=== PATIENT | male | born 1985 | race Caucasian/White ===

== ENCOUNTER 2022-07-20 07:30 | Outpatient (RCR) | payer MEDICAID, SELFPAY | END 2022-11-07 10:56 | disposition home or self-care (01) | PROVIDERS: Visit Provider Family Medicine | DX: M25.572 Pain in left ankle and joints of left foot (principal); Z51.89 Encounter for other specified aftercare | CPT/HCPCS: 97110; 97162 ==

== ENCOUNTER 2022-09-19 09:45 | Emergency (ER) | payer MEDICAID, SELFPAY ==
[2022-09-19 10:03] VITALS: BP 127/89; PULSE 85; RESP 14; TEMP 37.4; O2SAT 100; BMI 25.8
--- NOTE | 2022-09-19 10:11 | CRLHL7_ITS ---
For Patients: As a result of the Century Cures Act, medical imaging exams and procedure reports are released immediately into your electronic medical record. You may view this report before your referring provider. If you have questions, please contact your health care provider. INDICATION: Cough TECHNIQUE: Chest 1 view COMPARISON: None FINDINGS: Cardiovascular and mediastinum: Heart size and vasculature are normal in caliber and appearance. Lungs and pleural spaces: Lungs are clear. No sign of infiltrate or mass. No sign of pleural effusion. No pneumothorax. Bones and soft tissues: No significant findings. IMPRESSION: No acute findings. Dictated by Morris Aguilar MD @ 09/19/2022 10:59:55 AM (Electronically Signed)
--- NOTE | 2022-09-19 10:13 | ED_ITS ---
HPI - URI/Sore Throat General Date Seen: 09/19/22 Chief Complaint: Ear/Nose/Throat Problem Stated Complaint: Fever, sore throat Time Seen by Provider: 09/19/22 09:47 Source: patient Mode of arrival: ambulatory Limitations: no limitations History of Present Illness HPI Narrative: Patient is a very nice 37-year-old gentleman who has been sick for the past 5 days, he had a fever for the 1st 2 and half to 3 days, of up to 102, body aches, have continued. He also has runny nose, cough associated with this. He did not receive the flu shot this year, is not COVID vaccinated. He called the clinic today, and they directed him to the emergency room to be seen. He notices some discomfort when he swallows, primarily on the right side of his neck, he is eating and drinking otherwise normally, taking some vrob-gxy-gtuverr medications. No history of immunosuppression, does have a history of bipolar disorder is a smoker, occasionally. Denies chest pain, myesha shortness of breath, nausea vomiting, rashes, headache, neck stiffness,. MD elicited complaint: fever and cough Related Data Home Medications Medication Instructions Recorded Confirmed lamotrigine 200 mg tablet 200 mg PO DAILY 09/19/22 09/19/22 lurasidone 40 mg tablet (Latuda) 40 mg PO DAILY 09/19/22 09/19/22 Allergies Allergy/AdvReac Type Severity Reaction Status Date / Time No Known Drug Allergies Allergy Verified 09/19/22 10:08 Review of Systems 2 Status of ROS: Reports: 10 or more systems reviewed and unremarkable except as noted in History and below PFSH PFSH Social History Smoking Status: Light tobacco smoker How often do you have a drink containing alcohol: monthly or less AUDIT-C Alcohol total score: 1 Non-prescribed substance use: marijuana (any form) Non-prescribed substance use details: medical thc Exam Narrative: Exam Narrative: Patient is delightful gentleman seen in room 2, he appears to be in no apparent distress with occasional coughing. His pupils are equal round reactive to light, oropharynx shows some slight redness and almost appears to have had previous tonsillectomy. With scarring. TMs bilaterally are normal, is neck is supple full range of motion is listed with absence of meningismus, no significant lymphadenopathy anterior posterior chains, thyroid is normal palpable not enlarged, moves normally. JVP flat, chest shows good air entry bilaterally with occasional crackles I noted on the left lower lobe. No wheezing noted, heart sounds are normal, skin reveals no petechiae or rashes. Abdomen is soft and scaphoid there is no guarding no tenderness no rashes. Const: Vital Signs, click to edit/add: Vital Signs - 24 hr 09/19/22 10:03 Temperature 99.4 F Pulse Rate [Pulse Oximeter] 85 Respiratory Rate 14 Blood Pressure [Ri ght Upper Arm] 127/89 Pulse Oximetry 100 Oxygen Delivery Me thod Room Air Course Course Hospital Course: Explained to the patient he is positive for COVID, he was sick last week, 10 days for him would be in 48 hours, and then I think he would be okay to go back to work, went over the signs and symptoms of worsening with COVID including the complications, he is in agreeable to this, and will return if he has any further issues. Given the length of his time of sickness, in the no core morbid conditions, I do not think treatment is needed. Vital Signs Vital signs: Initial Vital Signs Temperature 99.4 F 09/19/22 10:03 Temperature Source Temporal Artery Scan 09/19/22 10:03 Pulse Rate 85 09/19/22 10:03 Pulse Rhythm 09/19/22 10:03 Respiratory Rate 14 09/19/22 10:03 Blood Pressure 127/89 09/19/22 10:03 Blood Pressure Mean 101 09/19/22 10:03 Blood Pressure Position Sitting 09/19/22 10:03 Pulse Oximetry 100 09/19/22 10:03 Oxygen Delivery Method 09/19/22 10:03 Vital Signs Temperature 99.4 F 09/19/22 10:03 Pulse Rate 85 09/19/22 10:03 Respiratory Rate 14 09/19/22 10:03 Blood Pressure 127/89 09/19/22 10:03 Pulse Oximetry 100 09/19/22 10:03 Oxygen Delivery Method 09/19/22 10:03 Temperature 99.4 F 09/19/22 10:03 Pulse Rate 85 09/19/22 10:03 Respiratory Rate 14 09/19/22 10:03 Blood Pressure 127/89 09/19/22 10:03 Pulse Oximetry 100 09/19/22 10:03 Oxygen Delivery Method 09/19/22 10:03 MDM - URI/Sore Throat MDM Narrative Medical decision making narrative: Differential diagnosis include a viral upper respiratory illness, histoplasmosis, tuberculosis, pneumonia, COPD exacerbation, emphysema, strep throat illness, bronchitis, asthma, reactive airway disease, chronic cough, medi cation side effects, allergic rhinitis with postnasal drip, foreign body aspiration, aspiration pneumonia, bronchiolitis, and gastroesophageal reflux disease as well as multiple other considerations. Differential Diagnosis Differential diagnosis: Likely upper respiratory infection Medical Records Attestation: I reviewed the patient's medical records. Lab Data Attestation: I reviewed the patient's lab results. Lab results narrative: Positive for COVID Labs: Lab Results 09/19/22 Range/Units 10:15 SARS-CoV-2 (PCR) POSITIVE SARS-CoV-2 A (Negative) Influenza Type A (PCR) Negative PCR FLU A (Negative) Influenza Type B (PCR) Negative PCR FLU B (Negative) RSV (PCR) Negative PCR RSV (Negative) Imaging Data Chest x-ray: My impression: Chest x-ray negative Radiologist's impression: Chest x-ray negative Discharge Plan Discharge Clinical Impression: COVID-19 Patient Disposition: Home, Self-Care Condition: Stable Instructions: COVID-19 (Coronavirus Disease 2019) (ED), COVID-19 and Chronic Health Conditions (ED), Face Coverings (Masks) and COVID-19 (ED) Additional Instructions: Home rest off work for the next 2 days, able to go back work in 48 hours. He was off work yesterday, and this should also account for this. Return here if i ncreasing symptoms such as chest pain passing out leg swelling. Problems breathing. Were face mask, explained other people, that your positive for COVID. Prescriptions: No Action lamotrigine 200 mg tablet 200 mg PO DAILY Latuda 40 mg tablet 40 mg PO DAILY Follow Up/Referrals: Provider,Not a Local [Primary Care Provider] - Stand Alone Forms: [employer] Info Instructions
[2022-09-19] MEDS: ACETAMINOPHEN 500 MG TABLET 1000 MG PO (10:20)
--- OUTSIDE RECORDS SUMMARY | 2022-09-19 10:22 | XMS_ITS | Clinical Summary ---
:1985 Author Organization [facility] [place] [address] Care Team Providers Name Role Phone Ruth Ann Cadena Primary Care Provider [phone] Allergies No known active allergies Medications Medication Sig Dispensed Refills Start Date End Date Status lamoTRIgine Take 1 Tablet 30 Tablet 2 07/11/2022 Act rachel (LAMICTAL) 200 mg (200 mg) by tabletIndications: mouth once Bipolar 1 disorder daily. (HC) Ventolin HFA 90 INHALE 2 PUFFS 18 g 0 08/28/2022 Active mcg/actuation BY MOUTH EVERY inhalerIndications 4 HOURS : Mild NEEDED FOR intermittent SHORTNESS OF asthma with acute BREATH OR exacerbation WHEEZING Latuda 40 mg TAKE 1 30 Tablet 1 08/28/2022 Active tabletIndications: TABLET(40 MG) Bipolar 1 disorder BY MOUTH EVERY (HC) DAY WITH A MEAL albuterol HFA Inhale 2 Puffs 1 Each 5 12/28/2021 08/28/2022 Discontinued (Ventolin HFA) 90 by mouth every mcg/actuation 4 hours if inhalerIndications needed for : Mild Shortness of intermittent Breath 1st asthma with acute choice or exacerbation Wheezing 1st choice. lurasidone Take 1 Tablet 30 Tablet 2 07/11/2022 08/28/2022 Dis continued (LATUDA) 40 mg (40 mg) by tabletIndications: mouth once Bipolar 1 disorder daily with a (HC) meal. 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 11/03/2017 Alcohol use disorder, severe, in sustained remission 1 Encounters Date Type Specialty Care Team Description 09/19/2022 Travel 09/19/2022 Nurse Triage Pcp, No Throat Pain/pro blem 08/26/2022 Refill Malecharly, Any Refill Requ est (Latuda) ODETTE Thomas 08/25/2022 Refill Ahlskog, Ruth Ann Refill Requ est (Ventolin [place], PA Hfa) 07/12/2022 Telephone Thaddeus Salmon, ANTHONY Sup ply (Custom DPM orthotics) 07/11/2022 Office Visit Any Kyle Follow Up ( ); ODETTE Thomas Medication Riya gement 07/11/2022 Medical Messaging Brenden Scales, Pr junito SWAN 07/11/2022 Travel 06/27/2022 Office Visit Thaddeus Salmon, Consult (Left ankle pain, DPM orthotics) 06/27/2022 Travel 06/21/2022 Refill Malecharly Any Refill Requ est ODETTE Thomas (Lamotrigine) from Last 3 Months Immunizations Name Administration Dates Next Due Td (Age >=7 Years) 07/31/1997 Tdap 04/26/2012, 12/29/2008 Family History Medical History Relation Name Comments Asthma Brother 1 Depression Brother 1 Depression Brother 2 Depression Brother 3 Seizures Father Depression Mother Diabetes Mother Alcoholism Other dad's side Depression Sister Mental illness Son 1 Other Son 2 Pablo nut and shrimp a llergies Relation Name Status Comments Brother 1 Alive Brother 2 Alive Brother 3 Alive Father (Age 26) Mother Alive Other Sister Alive Son 1 Alive Son 2 Pablo Alive Social History Tobacco Use Types Packs/Day Years Used Date Former Smoker Cigarettes 0.3 Quit: 07/24/20 21 Smokeless Tobacco: Never Used Tobacco Cessation: Counseling Given: Yes Alcohol Use Standard Drinks/Week Comments Not Currently 0 (1 standard drink = 0.6 oz pure No ETO H in 2 months, noted alcohol) 12/13/2021 Alcohol Habits Answer Date Recorded How often do you have a drink Not asked containing alcohol? How many drinks containing alcohol do Not asked you have on a typical day when you are drinking? How often do you have six or more Not asked drinks on one occasion? 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 Obstetrics History Last Filed Vital Signs Vital Sign Reading Time Taken Comments Blood Pressure 119/78 07/11/2022 7:35 AM CDT Pulse 73 07/11/2022 7:35 AM CDT Temperature 36.5 ??C (97.7 ??F) 05/31/2022 8:09 AM CDT Respiratory Rate 16 11/03/2017 10:00 AM WRAPAROUND FACILITATOR Oxygen Saturation 97% 06/27/2022 3:19 PM CDT Inhaled Oxygen Concentration - - Weight 81.3 kg (179 lb 4.8 oz) 07/11/2022 7:35 AM CDT Height 172.9 cm (5' 8.07) 09/23/2021 8:39 AM WRAPAROUND FACILITATOR Body Mass Index 27.21 09/23/2021 8:39 AM WRAPAROUND FACILITATOR Plan of Treatment Upcoming Encounters Date Type Specialty Care Team Description 09/20/2022 Office Visit [facility]ke[facility] [address] [facility] [place] [address] ([place] dem[place]co) 10/18/2022 Office Visit Brenden Scales MD [address] [place] [address] (Praveen pal) Health Maintenance Due Date Last Done Comments COVID-19 vaccine series (#1) 1984 Pneumococcal series for age 19-64 1990 (1 - PCV) HIV for age 15-65 1999 Hepatitis C screening for age 0503/13/2002 18-79 Tetanus booster 04/26/2022 04/26/2012, 12/29/2008, 07/31/1997 Influenza for age 9-49 07/06/2022 BMI (ht and wt on same day) for 09/23/2022 09/23/2021 age 18+ Depression screening for age 12+ 07/12/2023 07/12/2022, 04/2022, 06/01/2022, Additional history exists Lipids for age 35-44 09/23/2026 09/23/2021 Tdap Completed 04/26/2012, 12/29/2008 Results Not on filefrom Last 3 Months Insurance Payer Benefit Plan / Subscriber ID Effective Dates Phone Addre ss Type Group MEDICA MEDICA CHOICE [id number] 2016-Present [address] [address] [place] [address] [employer] [place] [id number] 2020-Present [address] [place] [address] Gino Hernandez Personal/Family Self 1985 [address] (Home) [address] [place] [address] [place] [facility] [employer] Employer [address] [place] (Home) [employer] [phone] (Work) Advance Directives Latest Code Status on File Code Status Date Activated Date Inactivated Comments Full Code 11/02/2017 10:19 PM 11/03/2017 1:41 PM Care Teams Educational Therapist Relationship Specialty Start Date End Date Ruth Ann Cadena PA PCP - General Physician Interpreter 05/03/[address] [place] [address]
[2022-09-19 11:06] LABS: PCR FLU A Negative PCR FLU A (Negative); PCR FLU B Negative PCR FLU B (Negative); PCR RSV Negative PCR RSV (Negative)
[2022-09-19 11:16] LABS: SARS PCR* POSITIVE SARS-CoV-2 (Negative)
[2022-09-19 11:47] VITALS: BP 127/89; PULSE 85; RESP 14; TEMP 37.4
== END 2022-09-19 11:48 | disposition home or self-care (01) ==
PROVIDERS: Emergency Provider Family Medicine
DX: U07.1 COVID-19 (principal); M79.10 Myalgia, unspecified site
CPT/HCPCS: 71045; 87502; 87634; 87635; 99283; A9270

== ENCOUNTER 2022-09-19 14:55 | Emergency (ER) | payer MEDICAID, SELFPAY ==
[2022-09-19 15:32] VITALS: BP 122/84; PULSE 98; RESP 16; TEMP 37.4; O2SAT 97; BMI 25.8
--- NOTE | 2022-09-19 15:47 | ED_ITS ---
HPI - General Adult General Time Seen by Provider: 15:48 Date Seen: 09/19/22 Chief complaint: Chest Pain Stated complaint: Covid+, chest pain Time Seen by Provider: 09/19/22 15:47 Source: patient, RN notes reviewed and old records reviewed Mode of arrival: ambulatory Limitations: no limitations History of Present Illness HPI narrative: 37-year-old male who comes in today with chest pain. Patient was seen here earlier in the day and was diagnosed with COVID infection. Comes back left- sided chest pain which he says feels like a cramp as well as feeling like his heart is beating fast. No increased shortness of breath. Pain is worse with movement, not worse with shortness of breath. Has not taken any medications since leaving the department. Related Data Home Medications Medication Instructions Recorded Confirmed lamotrigine 200 mg tablet 200 mg PO DAILY 09/19/22 09/19/22 lurasidone 40 mg tablet (Latuda) 40 mg PO DAILY 09/19/22 09/19/22 Allergies Allergy/AdvReac Type Severity Reaction Status Date / Time No Known Drug Allergies Allergy Verified 09/19/22 15:39 Review of Systems Status of ROS: Reports: 10 or more systems reviewed and unremarkable except as noted in History and below PFSH PFS Social History Smoking Status: Light tobacco smoker Do you use any of these nicotine containing products: None How often do you have a drink containing alcohol: monthly or less AUDIT-C Alcohol total score: 1 Non-prescribed substance use: marijuana (any form) Non-prescribed substance use details: medical thc service: No Exam Narrative: Exam Narrative: General: Well-developed and well-nourished, no acute distress Head: Atraumatic and normocephalic Eyes: Pupils are equal reactive, extraocular motions intact, conjunctiva clear ENT: External nose and ears are normal, posterior pharynx without erythema or exudate Neck: No midline cervical tenderness, full spontaneous range of motion the neck, trachea midline, no adenopathy Heart: Regular rate and rhythm no murmurs or thrills Lungs: Clear to auscultation bilaterally without wheezes or crackles. Chest wall tenderness in the 5th intercostal space on the left which reproduces symptoms Abdomen: Soft, nontender, nondistended with active bowel sounds Musculoskeletal: No tenderness, deformity, or edema Neurologic: Awake, alert, and oriented x3, no gross focal neurologic deficits, cranial nerves intact as tested Psych: Mood and affect are appropriate Skin: No rashes Const: Vital Signs, click to edit/add: Vital Signs - 24 hr 09/19/22 15:32 Temperature 99.3 F Pulse Rate [Right Pulse Oximeter] 98 Respiratory Rate 16 Blood Pressure [Ri ght Upper Arm] 122/84 Pulse Oximetry 97 Oxygen Delivery Me thod Room Air Course Course Hospital Course: Patient seen examined, prior records reviewed. Patient diagnosed with COVID earlier today, now comes back left-sided chest pain. No tachycardia or hypoxia. D-dimer is ordered although clinically pulmonary embolism is low likelihood but he does not fit low risk criteria because of COVID diagnosis. Pain is reproducible with palpation. EKG is reassuring, D-dimer is ordered. Toradol IM is given and plan to discharge. Reevaluation(s) Reevaluation #1: D-dimer is negative, patient is stable for discharge. Time: 17:04 Vital Signs Vital signs: Initial Vital Signs Temperature 99.3 F 09/19/22 15:32 Temperature Source Temporal Artery Scan 09/19/22 15:32 Pulse Rate 98 09/19/22 15:32 Respiratory Rate 16 09/19/22 15:32 Blood Pressure 122/84 09/19/22 15:32 Blood Pressure Mean 96 09/19/22 15:32 Blood Pressure Position Sitting 09/19/22 15:32 Pulse Oximetry 97 09/19/22 15:32 Oxygen Delivery Method 09/19/22 15:32 Vital Signs Temperature 99.3 F 09/19/22 15:32 Pulse Rate 98 09/19/22 15:32 Respiratory Rate 16 09/19/22 15:32 Blood Pressure 122/84 09/19/22 15:32 Pulse Oximetry 97 09/19/22 15:32 Oxygen Delivery Method 09/19/22 15:32 Temperature 99.3 F 09/19/22 15:32 Pulse Rate 98 09/19/22 15:32 Respiratory Rate 16 09/19/22 15:32 Blood Pressure 122/84 09/19/22 15:32 Pulse Oximetry 97 09/19/22 15:32 Oxygen Delivery Method 09/19/22 15:32 Medical Decision Making Medical Records Medical records reviewed: Yes I reviewed the patient's medical records Lab Data Lab results reviewed: Yes I reviewed the patient's lab results Labs: Lab Results 09/19/22 Range/Units 16:02 D-Dimer Quant (PE/DVT) 0.33 (0.00-0.50) ug/ml ECG Data Attestation: I personally reviewed and interpreted this ECG as follows: Prior ECG tracings: not available for review Interpretation: Performed at 3:56 p.m. demonstrates sinus rhythm rate 99, incomplete right bundle-branch block, no acute ST elevations or depressions, normal intervals, normal axis, QTC 464, SD 150. No prior for comparison. Discharge Plan Discharge Clinical Impression: COVID-19, Acute chest wall pain Patient Disposition: Home, Self-Care Condition: Stable Instructions: Chest Wall Pain (ED) Additional Instructions: Take Tylenol and ibuprofen for fever, body aches, chest pain Activity Level: No Restrictions Discharge Diet: Regular Prescriptions: No Action lamotrigine 200 mg tablet 200 mg PO DAILY Latuda 40 mg tablet 40 mg PO DAILY Follow Up/Referrals: Provider,Not a Local [Primary Care Provider] - Stand Alone Forms: [employer] Info Instructions
--- OUTSIDE RECORDS SUMMARY | 2022-09-19 16:13 | XMS_ITS | Clinical Summary ---
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 Obstetrics History Last Filed Vital Signs Vital Sign Reading Time Taken Comments Blood Pressure 119/78 07/11/2022 7:35 AM CDT Pulse 73 07/11/2022 7:35 AM CDT Temperature 36.5 ??C (97.7 ??F) 05/31/2022 8:09 AM CDT Respiratory Rate 16 11/03/2017 10:00 AM PICK UP AND DELIVERY DRIVER Oxygen Saturation 97% 06/27/2022 3:19 PM CDT Inhaled Oxygen Concentration - - Weight 81.3 kg (179 lb 4.8 oz) 07/11/2022 7:35 AM CDT Height 172.9 cm (5' 8.07) 09/23/2021 8:39 AM PICK UP AND DELIVERY DRIVER Body Mass Index 27.21 09/23/2021 8:39 AM PICK UP AND DELIVERY DRIVER Plan of Treatment Upcoming Encounters Date Type Specialty Care Team Description 09/20/2022 Office Visit [facility] [address] [facility] [place] [address] (Wo demarco) 10/18/2022 Office Visit Brenden Scales MD [address] [place] [address] (Praveen pal) Health Maintenance Due [...] Addre ss Type Group MEDICA MEDICA CHOICE [id number] 2016-Present [address] [address] [place] [address] [employer] [place] [id number] 2020-Present [address] [place] [address] Gino Hernandez Personal/Family Self 1985 [address] (Home) [address] [place] [address] [place] [employer] [facility] [employer] Employer [address] [place] (Home) [employer] [phone] (Work) Advance Directives Latest Code Status on File Code Status Date Activated Date Inactivated Comments Full Code 11/02/2017 10:19 PM 11/03/2017 1:41 PM Care Teams Seamer Panty Hose Relationship Specialty Start Date End Date Ruth Ann Cadena PA PCP - General Physician Item Repair Manager 05/03/[address] [place] [address]
[2022-09-19] MEDS: KETOROLAC 30 MG/ML inj IM (16:31)
[2022-09-19 16:33] LABS: D Dimer Quantitative* 0.33 ug/ml (0.00-0.50)
[2022-09-19 17:12] VITALS: BP 122/84; PULSE 98; RESP 16; TEMP 37.4
[2022-09-19 17:14] VITALS: BP 133/72; PULSE 72; RESP 14; O2SAT 99
== END 2022-09-19 17:12 | disposition home or self-care (01) ==
PROVIDERS: Emergency Provider Family Medicine
DX: R07.89 Other chest pain (principal); U07.1 COVID-19
CPT/HCPCS: 36415; 85379; 96372; 99283; 99284; J1885

== ENCOUNTER 2022-09-21 12:24 | Emergency (ER) | payer MEDICAID, SELFPAY ==
[2022-09-21 13:10] VITALS: BP 113/80; PULSE 79; RESP 16; TEMP 36.8; O2SAT 98; BMI 25.8
--- NOTE | 2022-09-21 13:16 | ED.GENADULT ---
HPI - General Adult General Time Seen by Provider: 13:17 Date Seen: 09/21/22 Chief complaint: Chest Pain Stated complaint: Chest pain left side Time Seen by Provider: 09/21/22 13:08 Source: patient, RN notes reviewed and old records reviewed Mode of arrival: ambulatory Limitations: no limitations History of Present Illness HPI narrative: Patient is a 37-year-old male coming in with left-sided chest pain, more along the left lower side of his chest. It is deeper than what he can touch. He was diagnosed with COVID this past Sunday, came back in shortly after with left chest pain. He was evaluated, had a normal D-dimer and was given Toradol. He states the pain is still there. He has been using Tylenol and ibuprofen it is not really changing things. He has initially been sick since Sunday with fevers and chills, they went through to Sunday. He has got some mild cough, occasionally productive. No GI symptoms with this. He is not short of breath. The pain hurts worse with deep breathing. No palpitations. He believes 1 of his coworkers came to work sick with COVID and brought it to him. Related Data Home Medications Medication Instructions Recorded Confirmed lamotrigine 200 mg tablet 200 mg PO DAILY 09/19/22 09/21/22 lurasidone 40 mg tablet (Latuda) 40 mg PO DAILY 09/19/22 09/21/22 Previous Rx's Medication Instructions Recorded ketorolac 10 mg tablet 10 mg PO Q6H PRN pain 5 days #20 09/21/22 tabs Allergies Allergy/AdvReac Type Severity Reaction Status Date / Time No Known Drug Allergies Allergy Verified 09/21/22 13:10 Review of Systems Status of ROS: Reports: 10 or more systems reviewed and unremarkable except as noted in History and below PFSH PFS Social History Smoking Status: Light tobacco smoker Do you use any of these nicotine containing products: None How often do you have a drink containing alcohol: monthly or less AUDIT-C Alcohol total score: 1 Non-prescribed substance use: marijuana (any form) Non-prescribed substance use details: medical thc service: No Exam Const: Vital Signs, click to edit/add: Vital Signs - 24 hr 09/21/22 13:10 09/21/22 13:25 Temperature 98.3 F Pulse Rate [Pulse Oximeter] 79 Respiratory Rate 16 Blood Pressure [Ri ght Upper Arm] 113/80 Pulse Oximetry 98 100 Oxygen Delivery Me thod Room Air Documenting provider has reviewed patient's vital signs: yes Common normals: no apparent distress, average body habitus, oriented x3, no limitations, healthy appearing, alert and well nourished General appearance: cooperative, comfortable, well kempt and well developed HENMT: Common normals: normocephalic, head/scalp atraumatic, hearing grossly normal bilaterally and external ears normal Head and scalp: normocephalic and atraumatic External ear: external ears normal Eye: Common normals: PERRL, EOMs intact bilaterally, conjunctivae normal and no scleral icterus Conjunctiva: conjunctiva(e) normal Pupil: PERRL Neck & C-Spine: Common normals: full ROM, no lymphadenopathy, supple, no meningeal signs, no JVD and thyroid normal Thyroid: thyroid normal Lymph: Lymphatic: no lymphadenopathy noted Chest: Common normals: inspection of chest normal and palpation of chest normal Resp: Common normals: normal respiratory effort, no retractions, no use of accessory muscles and clear to auscultation bilaterally Auscultation: clear to auscultation bilaterally Cardio: Common normals: no JVD, regular rate, regular rhythm, S1 normal heart sound, S2 normal heart sound, no gallops, no clicks and no murmurs Rate: regular rate Rhythm: regular rhythm Heart sounds: S1 normal and S2 normal GI: Common normals: Normal to inspection, nondistended, normoactive bowel sounds present, soft to palpation, non-tender, no hepatosplenomegaly and no masses Palpation: soft and no hepatosplenomegaly Extremity: Other: No calf tenderness, no lower extremity edema. Ambulatory into the ED of his own accord with normal gait. Neuro: Common normals: oriented x3 Sensorium/orientation: alert Meningeal signs: no meningeal signs Speech: speech normal Psych: Appearance: well kempt Course Course Hospital Course: Will proceed with portable chest x-ray to rule out pneumonia, pneumothorax. He will be on pulse oximetry which will see if he develops any tachycardia or hypoxia. Will proceed with labs. Did review with him will be getting a D-dimer. If his D-dimer does come back elevated will recommend chest CT PE protocol. We will try a shot of Toradol with 30 mg IM. I had initially ordered everything IV but patient did decide he wanted it IM and a blood draw without an IV being started. Reevaluation(s) Reevaluation #1: Reviewed with patient that there is no evidence of any complication from his COVID. He is not hypoxic, chest x-ray is normal. There is no cardiac complications with a normal troponin, normal EKG, no arrhythmia on cardiac monitoring. His labs look reassuring. D-dimer is normal. I would not recommend proceeding with chest CT PE protocol given that he has got no tachycardia, no hypoxia, no lab changes. I think in this situation the risk of radiation really outweighs any benefit we might see on the CT. He is not really feeling that the Toradol at this point as helped a lot. I did review with him that he may just have some pain that is pleuritic through COVID. I would not recommend narcotics, I think that is fraught with its own set of complications. He does not look that distressed due to the pain. I would recommend a trial of Toradol with Tylenol and then transitioning back to Tylenol and ibuprofen. Hopefully within the next week he will be improving. Time: 15:21 Vital Signs Vital signs: Initial Vital Signs Temperature 98.3 F 09/21/22 13:10 Temperature Source Temporal Artery Scan 09/21/22 13:10 Pulse Rate 79 09/21/22 13:10 Pulse Rhythm 09/21/22 13:10 Pulse Strength 3+ Normal 09/21/22 13:10 Respiratory Rate 16 09/21/22 13:10 Blood Pressure 113/80 09/21/22 13:10 Blood Pressure Mean 91 09/21/22 13:10 Blood Pressure Position Supine 09/21/22 13:10 Pulse Oximetry 98 09/21/22 13:10 Oxygen Delivery Method 09/21/22 13:10 Vital Signs Temperature 98.3 F 09/21/22 13:10 Pulse Rate 79 09/21/22 13:10 Respiratory Rate 16 09/21/22 13:10 Blood Pressure 113/80 09/21/22 13:10 Pulse Oximetry 98 09/21/22 13:10 Oxygen Delivery Method 09/21/22 13:10 Temperature 98.3 F 09/21/22 13:10 Pulse Rate 79 09/21/22 13:10 Respiratory Rate 16 09/21/22 13:10 Blood Pressure 113/80 09/21/22 13:10 Pulse Oximetry 100 09/21/22 13:25 Oxygen Delivery Method 09/21/22 13:10 Medical Decision Making Lab Data Lab results reviewed: Yes I reviewed the patient's lab results Labs: Lab Results 09/21/22 09/21/22 09/21/22 Range/Units 14:25 14:25 14:25 WBC 6.00 (4.50-11.00) K/uL RBC 5.02 (4.30-5.90) m/uL Hgb 14.8 (13.5-17.5) gm/dL Hct 45.3 (37.0-53.0) % MCV 90 (80-100) fL MCH 30 (26-34) pg MCHC 33 (32-36) gm/dL RDW Coeff of Horace 11.4 L (11.5-15.5) % Plt Count 224 (140-440) K/uL Neut % (Auto) 61.6 (42.0-72.0) % Lymph % (Auto) 26.8 (20-44) % Florence % (Auto) 7.5 (0.0-11.0) % Eos % (Auto) 3.7 (0.0-7.0) % Baso % (Auto) 0.2 (0.0-3.0) % Neut # (Auto) 3.70 (1.7-7.0) K/uL Lymph # (Auto) 1.61 (0.90-2.90) K/uL Florence # (Auto) 0.50 (0.00-0.90) K/UL Eos # (Auto) 0.22 (0.00-0.50) K/uL Baso # (Auto) 0.01 (0.00-0.30) K/uL Abs Immat Gran (auto) 0.01 (0.00-0.30) K/uL Imm/Tot Granulo (auto) 0.2 % D-Dimer Quant (PE/DVT) < 0.27 (0.00-0.50) ug/ml Sodium 140 (135-149) mmol/L Potassium 5.0 (3.6-5.1) mmol/L Chloride 103 (96-114) mmol/L Carbon Dioxide 30 (20-32) mmol/L BUN 15 (5-24) mg/dL Creatinine 0.8 (0.5-1.5) mg/dL Estimated Creat Clear 125.20 Estimated GFR 116 ml/min Glucose 97 (60-115) mg/dL Calcium 9.1 (8.4-10.6) mg/dL Total Bilirubin 0.4 (0.1-1.5) mg/dL AST 24 (12-35) U/L ALT 27 (4-50) U/L Alkaline Phosphatase 71 (40-150) U/L C-Reactive Protein 0.9 (0.5-1.0) mg/dL Total Protein 7.4 (6.0-8.3) g/dL Albumin 4.5 (3.3-5.0) g/dL POC Troponin I (0.01-0.04) ng/ml 09/21/22 Range/Units 14:25 WBC (4.50-11.00) K/uL RBC (4.30-5.90) m/uL Hgb (13.5-17.5) gm/dL Hct (37.0-53.0) % MCV (80-100) fL MCH (26-34) pg MCHC (32-36) gm/dL RDW Coeff of Horace (11.5-15.5) % Plt Count (140-440) K/uL Neut % (Auto) (42.0-72.0) % Lymph % (Auto) (20-44) % Florence % (Auto) (0.0-11.0) % Eos % (Auto) (0.0-7.0) % Baso % (Auto) (0.0-3.0) % Neut # (Auto) (1.7-7.0) K/uL Lymph # (Auto) (0.90-2.90) K/uL Florence # (Auto) (0.00-0.90) K/UL Eos # (Auto) (0.00-0.50) K/uL Baso # (Auto) (0.00-0.30) K/uL Abs Immat Gran (auto) (0.00-0.30) K/uL Imm/Tot Granulo (auto) % D-Dimer Quant (PE/DVT) (0.00-0.50) ug/ml Sodium (135-149) mmol/L Potassium (3.6-5.1) mmol/L Chloride (96-114) mmol/L Carbon Dioxide (20-32) mmol/L BUN (5-24) mg/dL Creatinine (0.5-1.5) mg/dL Estimated Creat Clear Estimated GFR ml/min Glucose (60-115) mg/dL Calcium (8.4-10.6) mg/dL Total Bilirubin (0.1-1.5) mg/dL AST (12-35) U/L ALT (4-50) U/L Alkaline Phosphatase (40-150) U/L C-Reactive Protein (0.5-1.0) mg/dL Total Protein (6.0-8.3) g/dL Albumin (3.3-5.0) g/dL POC Troponin I 0.00 L (0.01-0.04) ng/ml Imaging Data Chest x-ray: Attestation: I have reviewed the pertinent imaging results. My impression: No acute cardiopulmonary change of my preliminary read. Radiologist's impression: Patient: TRAVON HERRERA Facility:?[facility] Patient ID:?[id number] Site Patient ID:?[id number]. Site :?[id number] Study:?XRay Chest -09/21/2022 1:51:18 PM Ordering Physician:Suha Wagoner Final Report: INDICATION: COVID-19, cough TECHNIQUE: Chest radiograph 2 views COMPARISON: None FINDINGS: Mediastinum: The mediastinum is normal in appearance. The heart silhouette is normal in size and morphology. Lung: Both lungs are unremarkable in appearance. No sign of pleural effusion seen. No pneumothorax is identified. Bone and Soft tissue: Unremarkable for age. IMPRESSION: 1. No acute cardiopulmonary disease is seen. Dictated by: Armin Marti MD @ 09/21/2022 14:26:37 (Electronic Signature) ECG Data Attestation: I personally reviewed and interpreted this ECG as follows: (Normal sinus rhythm, 84 beats per minute. Incomplete right bundle branch block. QT corrected 434 milliseconds. No arrhythmia, no ischemia seen on this.) Critical Care Time Critical Care Time Critical Care Time: No Discharge Plan Discharge Clinical Impression: COVID-19, Pleuritic chest pain Condition: Stable Instructions: Pleurisy (ED), COVID-19 (Coronavirus Disease 2019) (ED) Additional Instructions: Can try the oral Toradol as prescribed. With this, you can take 1000 mg of Tylenol 3 times a day. Once you are done with the Toradol, can resume ibuprofen or Naprosyn and Tylenol alternating. Hopefully you will start to improve over the next few days to week. If at any point you are developing worsening respiratory symptoms with difficulty breathing, increasing cough or productive cough, worsening fever, further concerns, do recommend re-evaluation. Activity Level: Activity as Tolerated Prescriptions: New ketorolac 10 mg tablet 10 mg PO Q6H PRN (Reason: pain) 5 Days Qty: 20 0RF No Action lamotrigine 200 mg tablet 200 mg PO DAILY Latuda 40 mg tablet 40 mg PO DAILY Follow Up/Referrals: Provider,Not a Local [Primary Care Provider] - Stand Alone Forms: [employer] Info Instructions
[2022-09-21 13:25] VITALS: O2SAT 100
--- NOTE | 2022-09-21 13:25 | CRLHL7_ITS ---
For Patients: As a result of the Cures Act, medical imaging exams and procedure reports are released immediately into your electronic medical record. You may view this report before your referring provider. If you have questions, please contact your health care provider. INDICATION: COVID-19, cough TECHNIQUE: Chest radiograph 2 views COMPARISON: None FINDINGS: Mediastinum: The mediastinum is normal in appearance. The heart silhouette is normal in size and morphology. Lung: Both lungs are unremarkable in appearance. No sign of pleural effusion seen. No pneumothorax is identified. Bone and Soft tissue: Unremarkable for age. IMPRESSION: 1. No acute cardiopulmonary disease is seen. Dictated by: Armin Marti MD @ 09/21/2022 14:26:37 (Electronically Signed)
--- OUTSIDE RECORDS SUMMARY | 2022-09-21 13:28 | XMS_ITS | Clinical Summary ---
:1985 Author Organization [facility] [place] [address] Care Team Providers Name Role Phone Unavailable Primary Care Provider Unavailable Allergies No known active allergies Medications Medication [...] Encounters Date Type Specialty Care Team Description 09/21/2022 Telephone Ruth Ann Cadena PA 09/21/2022 Travel 09/21/2022 Nurse Triage Ruth Ann Cadena Concerns BIANKA Mccauley 09/19/2022 Travel 09/19/2022 Nurse Triage Pcp, No Throat Pain/pro blem 08/26/2022 Refill Malecha, Any Refill Requ est (Latuda) ODETTE Thomas 08/25/2022 Refill Ruth Ann Cadena Refill Requ est (Ventolin BIANKA Mccauley Hfa) 07/12/2022 Telephone Thaddeus Salmon, ANTHONY Sup ply (Custom DPM orthotics) 07/11/2022 Office Visit Any Kyle Follow Up ( ); ODETTE Thomas Medication Riay gement 07/11/2022 Medical Messaging Brenden Scales Me dication MD 07/11/2022 Travel 06/27/2022 Office Visit Thaddeus Salmon, Consult (Left ankle pain, DPM orthotics) 06/27/2022 Travel 06/21/2022 Refill Malecha, Any Refill Requ est ODETTE Thomas (Lamotrigine) [...] days, have you been in contact with No / Unsu re 09/21/2022 8:59 AM 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 Obstetrics History Last Filed Vital Signs Vital Sign Reading Time Taken Comments Blood Pressure 119/78 07/11/2022 7:35 AM CDT Pulse 73 07/11/2022 7:35 AM CDT Temperature 36.5 ??C (97.7 ??F) 05/31/2022 8:09 AM CDT Respiratory Rate 16 11/03/2017 10:00 AM DUST SAMPLER Oxygen Saturation 97% 06/27/2022 3:19 PM CDT Inhaled Oxygen Concentration - - Weight 81.3 kg (179 lb 4.8 oz) 07/11/2022 7:35 AM CDT Height 172.9 cm (5' 8.07) 09/23/2021 8:39 AM DUST SAMPLER Body Mass Index 27.21 09/23/2021 8:39 AM DUST SAMPLER Plan of Treatment Upcoming Encounters Date Type Specialty Care Team Description 10/18/2022 Office Visit Brenden Scales MD [address] [place] [phone] (Wo rk) Health Maintenance Due Date Last Done Comments [...] Addre ss Type Group MEDICA MEDICA CHOICE [id number] 2016-Present [address] [address] [place] [address] [facility] [place] [id number] 2020-Present [address] [place] [address] KevmichaelGino chairez Personal/Family Self 1985 [address] (Home) [address] [place] [address] [employer] [facility] [address] [place] (Home) [employer] [phone] (Work) Advance Directives Latest Code Status on File Code Status Date Activated Date Inactivated Comments Full Code 11/02/2017 10:19 PM 11/03/2017 1:41 PM
[2022-09-21 14:35] LABS: Basophils Absolute Auto 0.01 K/uL (0.00-0.30); Basophils Percent Auto 0.2 % (0.0-3.0); Eosinophils Absolute Auto 0.22 K/uL (0.00-0.50); Eosinophils Percent Auto 3.7 % (0.0-7.0); Hematocrit 45.3 % (37.0-53.0); Hemoglobin* 14.8 gm/dL (13.5-17.5); Immature Granulocytes Abs Auto 0.01 K/uL (0.00-0.30); Immature Granulocytes Pct Auto 0.2 %; Lymphocytes Absolute Auto 1.61 K/uL (0.90-2.90); Lymphocytes Percent Auto 26.8 % (20-44); Mean Corpuscular HGB Conc 33 gm/dL (32-36); Mean Corpuscular Hemoglobin 30 pg (26-34); Mean Corpuscular Volume 90 fL (80-100); Monocytes Percent Auto 7.5 % (0.0-11.0); Neutrophils Percent Auto 61.6 % (42.0-72.0); Platelet Count* 224 K/uL (140-440); RDW Coefficient of Variation % 11.4 % (11.5-15.5); Red Blood Count 5.02 m/uL (4.30-5.90)
[2022-09-21 14:41] LABS: Slide Review Reflex No
[2022-09-21 14:49] LABS: Albumin* 4.5 g/dL (3.3-5.0); Chloride* 103 mmol/L (96-114); Sodium* 140 mmol/L (135-149)
[2022-09-21 14:52] LABS: Alkaline Phosphatase* 71 U/L (40-150); Aspartate Amino Transferase* 24 U/L (12-35); Bilirubin Total* 0.4 mg/dL (0.1-1.5); Carbon Dioxide* 30 mmol/L (20-32); Creatinine* 0.8 mg/dL (0.5-1.5); Estimated Glomerular Filt Rate 116 ml/min; Total Protein* 7.4 g/dL (6.0-8.3)
[2022-09-21 14:53] LABS: Alanine Aminotransferase* 27 U/L (4-50); Blood Urea Nitrogen* 15 mg/dL (5-24); Calcium* 9.1 mg/dL (8.4-10.6); Glucose* 97 mg/dL (60-115)
[2022-09-21 14:55] LABS: C Reactive Protein* 0.9 mg/dL (0.5-1.0)
[2022-09-21 15:06] LABS: D Dimer Quantitative* < 0.27 ug/ml (0.00-0.50)
== END 2022-09-21 15:34 | disposition home or self-care (01) ==
PROVIDERS: Emergency Provider Family Medicine
DX: R07.89 Other chest pain (principal); U07.1 COVID-19
CPT/HCPCS: 36415; 71045; 80053; 85025; 85379; 86140; 93005; 94761; 99284; 99285

== ENCOUNTER 2022-10-05 10:32 | Emergency (ER) | payer MEDICAID, SELFPAY ==
[2022-10-05 11:08] VITALS: BP 118/74; PULSE 100; RESP 18; TEMP 37.7; O2SAT 97; BMI 25.8
[2022-10-05 12:09] LABS: PCR FLU A POSITIVE PCR FLU A (Negative); PCR FLU B Negative PCR FLU B (Negative)
[2022-10-05 12:10] LABS: SARS PCR* POSITIVE SARS-CoV-2 (Negative)
--- NOTE | 2022-10-05 13:31 | ED_ITS ---
HPI - General Adult General Chief complaint: Fever Stated complaint: Body aches, weak Time Seen by Provider: 10/05/22 13:25 Source: patient Mode of arrival: ambulatory Limitations: no limitations History of Present Illness HPI narrative: 29-year-old male coming in today complaining of not feeling well. Yesterday he developed a headache and achiness, low-grade fever and feels about the same today. He vomited once this morning. He denies any diarrhea or skin rashes. He had COVID 19 2 weeks ago and is feeling better from that. He denies any chest pain, abdominal pain or shortness of breath. Related Data Home Medications Medication Instructions Recorded Confirmed lamotrigine 200 mg tablet 200 mg PO DAILY 09/19/22 10/05/22 lurasidone 40 mg tablet (Latuda) 40 mg PO DAILY 09/19/22 10/05/22 Allergies Allergy/AdvReac Type Severity Reaction Status Date / Time No Known Drug Allergies Allergy Verified 10/05/22 11:10 Review of Systems Status of ROS: Reports: 10 or more systems reviewed and unremarkable except as noted in History and below PFSH PFS Social History Smoking Status: Light tobacco smoker Do you use any of these nicotine containing products: None How often do you have a drink containing alcohol: monthly or less AUDIT-C Alcohol total score: 1 Non-prescribed substance use: marijuana (any form) Non-prescribed substance use details: medical thc service: No Exam Narrative: Exam Narrative: Well-nourished well-developed patient in no acute distress. Alert and oriented. Answers questions appropriately. Mood and affect are appropriate. Thoughts are goal oriented and rational. No tangential or magical thinking noted. Patient speaks in full sentences without needing to catch his breath. Does appear tired. HEENT: Normocephalic atraumatic. Pupils are equally round reactive to light. Extraocular muscles are intact. Conjunctivae are moist without any icterus noted. Moist mucous membranes. Posterior pharynx is normal. Neck is soft without any lymphadenopathy or thyromegaly. No masses are appreciated. Cardiovascular: Heart is regular rate and rhythm S1 and S2 are present without any murmurs. Lungs: Clear to auscultation bilaterally no wheezes rhonchi or rales are appreciated. Patient takes deep breaths without any discomfort. Abdomen: Soft and nontender nondistended with normal bowel sounds. Extremities: Bilateral lower extremities are without edema. Skin: Well perfused without any obvious rashes. Const: Vital Signs, click to edit/add: Vital Signs - 24 hr 10/05/22 11:08 Temperature 100 F H Pulse Rate [Pulse Oximeter] 100 Respiratory Rate 18 Blood Pressure [Ri ght Upper Arm] 118/74 Pulse Oximetry 97 Oxygen Delivery Me thod Room Air Course Course Hospital Course: COVID did return positive today unsurprising. He is also positive for influenza A. Vital Signs Vital signs: Initial Vital Signs Temperature 100 F H 10/05/22 11:08 Temperature Source Temporal Artery Scan 10/05/22 11:08 Pulse Rate 100 10/05/22 11:08 Respiratory Rate 18 10/05/22 11:08 Blood Pressure 118/74 10/05/22 11:08 Blood Pressure Mean 88 10/05/22 11:08 Blood Pressure Position Sitting 10/05/22 11:08 Pulse Oximetry 97 10/05/22 11:08 Oxygen Delivery Method 10/05/22 11:08 Vital Signs Temperature 100 F H 10/05/22 11:08 Pulse Rate 100 10/05/22 11:08 Respiratory Rate 18 10/05/22 11:08 Blood Pressure 118/74 10/05/22 11:08 Pulse Oximetry 97 10/05/22 11:08 Oxygen Delivery Method 10/05/22 11:08 Temperature 100 F H 10/05/22 11:08 Pulse Rate 100 10/05/22 11:08 Respiratory Rate 18 10/05/22 11:08 Blood Pressure 118/74 10/05/22 11:08 Pulse Oximetry 97 10/05/22 11:08 Oxygen Delivery Method 10/05/22 11:08 Medical Decision Making MDM Narrative Medical decision making narrative: 29-year-old male with influenza a. We discussed symptomatic treatment. We discussed Tamiflu use and patient is not interested at this time. Lab Data Lab results reviewed: Yes I reviewed the patient's lab results Labs: Lab Results 10/05/22 Range/Units 11:07 SARS-CoV-2 (PCR) POSITIVE SARS-CoV-2 A (Negative) Influenza Type A (PCR) POSITIVE PCR FLU A A (Negative) Influenza Type B (PCR) Negative PCR FLU B (Negative) Discharge Plan Discharge Clinical Impression: Influenza A Patient Disposition: Home, Self-Care Condition: Stable Additional Instructions: Make sure to stay well hydrated by drinking plenty of fluids throughout the day. Rest as much as you need to. You are contagious until you have no fever for 24 hours without any medication. Okay to use Tylenol or ibuprofen as needed/as directed for fevers and achiness. Prescriptions: No Action lamotrigine 200 mg tablet 200 mg PO DAILY Latuda 40 mg tablet 40 mg PO DAILY Follow Up/Referrals: Provider,Not a Local [Primary Care Provider] - Stand Alone Forms: [employer] Info Instructions
--- OUTSIDE RECORDS SUMMARY | 2022-10-05 14:10 | XMS_ITS | Clinical Summary ---
:1985 Author Organization [facility] [place] [address] Care Team Providers Name Role Phone Unavailable Primary Care Provider Unavailable Allergies No known active allergies Medications Medication Sig Dispensed Refills Start Date End Date Status lamoTRIgine (LAMICTAL) Take 1 Tablet (200 30 Tablet 2 07/11/20 22 Active 200 mg mg) by mouth once tabletIndications: daily. Bipolar 1 disorder (HC) Ventolin HFA 90 INHALE 2 PUFFS BY 18 g 0 08/28/2022 Active mcg/actuation MOUTH EVERY 4 inhalerIndications: HOURS NEEDED Mild intermittent FOR SHORTNESS OF asthma with acute BREATH OR WHEEZING exacerbation Latuda 40 mg TAKE 1 TABLET(40 30 Tablet 1 08/28/2022 Active tabletIndications: MG) BY MOUTH EVERY Bipolar 1 disorder DAY WITH A MEAL (HC) 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 11/03/2017 Alcohol use disorder, severe, in sustained remission 1 Encounters Date Type Specialty Care Team Description 09/22/2022 Nurse Triage Clinic, No Pcp Or Chest Pain 09/21/2022 Telephone Ruth Ann Cadena Questions BIANKA Mccauley 09/21/2022 Travel 09/21/2022 Nurse Triage Ruth Ann Cadena Concerns BIANKA Mccauley 09/19/2022 Travel 09/19/2022 Nurse Triage Pcp, Loretta Throat Pain/pro blem 08/26/2022 Refill Any Kyle Refill Requ est (Latuda) ODETTE Thomas 08/25/2022 Refill Ruth Ann Cadena Refill Requ est (Ventolin [place], PA Hfa) 07/12/2022 Telephone Thaddeus Salmon, ANTHONY Sup ply (Custom DPM orthotics) 07/11/2022 Office Visit Any Kyle Follow Up ( ); ODETTE Thomas Medication Riya gement 07/11/2022 Medical Messaging Brenden Scales, Me junito SWAN 07/11/2022 Travel from Last 3 Months Immunizations Name Administration [...] No / Unsu re 09/21/2022 8: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 Obstetrics History Last Filed Vital Signs Vital Sign Reading Time Taken Comments Blood Pressure 119/78 07/11/2022 7:35 AM CDT Pulse 73 07/11/2022 7:35 AM CDT Temperature 36.5 ??C (97.7 ??F) 05/31/2022 8:09 AM CDT Respiratory Rate 16 11/03/2017 10:00 AM OFFICE MACHINE SERVICE SUPERVISOR Oxygen Saturation 97% 06/27/2022 3:19 PM CDT Inhaled Oxygen Concentration - - Weight 81.3 kg (179 lb 4.8 oz) 07/11/2022 7:35 AM CDT Height 172.9 cm (5' 8.07) 09/23/2021 8:39 AM OFFICE MACHINE SERVICE SUPERVISOR Body Mass Index 27.21 09/23/2021 8:39 AM OFFICE MACHINE SERVICE SUPERVISOR Plan of Treatment Upcoming Encounters Date Type Specialty Care Team Description 10/18/2022 Office Visit Brenden Scales MD [address] [place], [place] [phone] (Wo rk) Health Maintenance Due [...] Addre ss Type Group MEDICA MEDICA CHOICE [id number] 2016-Present [address] [address] [place] [address] [facility] [place] [id number] 2020-Present [address] [place] [address] Gino Hernandez Personal/Family Self [address] [place] [address] [facility] Employer [address] [place] (Home) [employer] [phone] (Work) Advance Directives Latest Code Status on File Code Status Date Activated Date Inactivated Comments Full Code 11/02/2017 10:19 PM 11/03/2017 1:41 PM
== END 2022-10-05 14:08 | disposition home or self-care (01) ==
LOC: ED 13:37
PROVIDERS: Emergency Provider Family Medicine
DX: J09.X2 Influenza due to identified novel influenza A virus with other respiratory manifestations (principal)
CPT/HCPCS: 87631; 87804; 99283; 99284

== ENCOUNTER 2023-07-12 09:23 | Emergency (ER) | payer MEDICAID, SELFPAY ==
[2023-07-12 09:30] VITALS: BP 132/90; PULSE 88; RESP 20; TEMP 36.2; O2SAT 100; BMI 26.6
[2023-07-12 10:17] LABS: Appearance Urine Clear (Clear); Bilirubin Urine Negative (Negative); Blood Urine Trace-intact (Negative); Color Urine Yellow (Yellow); Glucose Urine Negative (Negative); Ketones Urine Negative (Negative); Leukocyte Esterase Urine Negative (Negative); Nitrite Urine Negative (Negative); Protein Urine Negative (Negative); Specific Gravity Urine 1.025 (1.000-1.030); Urobilinogen Urine 0.2 (0.2-1.0)
[2023-07-12 10:27] LABS: RBC Urine 0-2 (0-2); WBC Urine 0-2 (0-5)
[2023-07-12 10:44] LABS: PCR FLU A Negative PCR FLU A (Negative); PCR FLU B Negative PCR FLU B (Negative)
[2023-07-12 10:49] LABS: SARS PCR* Negative SARS-CoV-2 (Negative)
--- NOTE | 2023-07-12 11:09 | ED.GENADULT ---
HPI - General Adult General Time Seen by Provider: 11:09 Date Seen: 07/12/23 Chief complaint: Abdominal Pain Stated complaint: Upper abdominal pain Time Seen by Provider: 07/12/23 10:58 Source: patient Mode of arrival: ambulatory Limitations: no limitations History of Present Illness HPI narrative: Patient is a 38-year-old male with no pertinent medical issues presented emergency department for epigastric pain. He states the pain started yesterday she took some Tylenol for sinus congestion. States the pain will radiate into his chest. Denies ever having symptoms like this before. Has not noticed any blood in his stool or black stools. No history of pancreatitis. Has never had issues with ulcers before. Patient states he is not taking ibuprofen regularly and has not had an unusual amount of stress recently. Also admits to being well hydrated. He states he has some sensation of bloating in his abdomen but has never had any previous abdominal surgeries. Has been eating without issue. Denies diarrhea or constipation. Does states he has been having issues with his allergies recently and was having some wheezing this morning the since resolved. No history of heart issues. Denies fevers, chills, weakness, numbness, diarrhea, constipation, dysuria. Related Data Home Medications Medication Instructions Recorded Confirmed albuterol sulfate 90 mcg/actuation 2 puff inhalation Q4H PRN wheezing 07/12/23 07/12/23 aerosol inhaler (Ventolin HFA) Allergies Allergy/AdvReac Type Severity Reaction Status Date / Time No Known Drug Allergies Allergy Verified 07/12/23 11:53 Review of Systems Status of ROS: Reports: 10 or more systems reviewed and unremarkable except as noted in History and below PFSH PFSH Social History Smoking Status: Light tobacco smoker Do you use any of these nicotine containing products: None How often do you have a drink containing alcohol: monthly or less AUDIT-C Alcohol total score: 1 Non-prescribed substance use: marijuana (any form) Non-prescribed substance use details: medical thc service: No Exam Narrative: Exam Narrative: Const: Well-nourished, Well-developed, in mild distress Eyes: PERRL, no conjunctival injection, and symmetrical lids ENMT: Atraumatic external nose and ears. Moist mucous membranes. Neck: Symmetric, trachea midline, No thyromegaly. CVS: RRR, No murmurs or gallops. Peripheral pulses 2+ and equal in all extremities RESP: Unlabored respiratory effort. Clear to auscultation bilaterally. GI: Epigastric tenderness. Nondistended, No rebound or guarding. MSK:Extremities w/o deformity, Normal Active ROM Skin: Warm, Dry. No rashes or lesions. Neuro: Normal Muscle tone, No focal neurological deficits. Psych: Awake, Alert, & Oriented x3. Appropriate mood and affect. Const: Vital Signs, click to edit/add: Vital Signs - 24 hr 07/12/23 09:30 Temperature 97.2 F L Pulse Rate [Pulse Oximeter] 88 Respiratory Rate 20 Blood Pressure [Ri t Upper Arm] 132/90 H Pulse Oximetry 100 Oxygen Delivery Me thod Room Air Course Vital Signs Vital signs: Initial Vital Signs Temperature 97.2 F L 07/12/23 09:30 Temperature Source Temporal Artery Scan 07/12/23 09:30 Pulse Rate 88 07/12/23 09:30 Respiratory Rate 20 07/12/23 09:30 Blood Pressure 132/90 H 07/12/23 09:30 Blood Pressure Mean 104 07/12/23 09:30 Blood Pressure Position Sitting 07/12/23 09:30 Pulse Oximetry 100 07/12/23 09:30 Oxygen Delivery Method Room Air 07/12/23 09:30 Vital Signs Temperature 97.2 F L 07/12/23 09:30 Pulse Rate 88 07/12/23 09:30 Respiratory Rate 20 07/12/23 09:30 Blood Pressure 132/90 H 07/12/23 09:30 Pulse Oximetry 100 07/12/23 09:30 Oxygen Delivery Method Room Air 07/12/23 09:30 Temperature 97.2 F L 07/12/23 09:30 Pulse Rate 88 07/12/23 09:30 Respiratory Rate 20 07/12/23 09:30 Blood Pressure 132/90 H 07/12/23 09:30 Pulse Oximetry 100 07/12/23 09:30 Oxygen Delivery Method Room Air 07/12/23 09:30 Medical Decision Making MDM Narrative Medical decision making narrative: Patient is a 38-year-old male presented to emergency department for epigastric tenderness that radiates to his chest. Symptoms started yesterday. Has been eating and drinking without issues. No history of pancreatitis and no history of ulcers. No other concerns at this time. Since the pain does radiate into his chest we will do a cardiac workup rule out ACS and an abdominal workup. This includes an EKG, troponin, CBC, CMP, lipase, urinalysis. Will also do a CT scan with IV contrast of the abdomen and pelvis. Differential includes peptic ulcers, pancreatitis, cholecystitis, ACS, viral syndrome. Unlikely to be a mesenteric ischemia considering pain is relatively minimal Patient's lab work all returned showing no concerning abnormalities. No signs of a UTI. COVID/flu is negative. Lipase is within normal limits. Troponin within normal limits. Electrolytes and CBC within normal limits. EKG showed no concerning abnormalities. CT scan the abdomen and pelvis with IV contrast shows what appears to be a small bowel small bowel intussusception with no mass or lesion identified. States this is likely incidental finding in usually does not require follow-up. Patient was informed of this finding he will follow-up with his primary care provider outpatient. Unclear was causing symptoms at this time but no emergent issues are seen. Lab Data Labs: Lab Results 07/12/23 07/12/23 07/12/23 Range/Units 09:57 10:18 11:36 WBC 6.15 (4.50-11.00) K/uL RBC 5.42 (4.30-5.90) m/uL Hgb 15.7 (13.5-17.5) gm/dL Hct 48.3 (37.0-53.0) % MCV 89 (80-100) fL MCH 29 (26-34) pg MCHC 33 (32-36) gm/dL RDW Coeff of Horace 11.8 (11.5-15.5) % Plt Count 250 (140-440) K/uL Neut % (Auto) 62.5 (42.0-72.0) % Lymph % (Auto) 22.8 (20-44) % Clark % (Auto) 7.3 (0.0-11.0) % Eos % (Auto) 6.7 (0.0-7.0) % Baso % (Auto) 0.5 (0.0-3.0) % Neut # (Auto) 3.85 (1.7-7.0) K/uL Lymph # (Auto) 1.40 (0.90-2.90) K/uL Clark # (Auto) 0.40 (0.00-0.90) K/UL Eos # (Auto) 0.41 (0.00-0.50) K/uL Baso # (Auto) 0.03 (0.00-0.30) K/uL Abs Immat Gran (auto) 0.01 (0.00-0.30) K/uL Imm/Tot Granulo (auto) 0.2 % Sodium 139 (135-149) mmol/L Potassium 4.6 (3.6-5.1) mmol/L Chloride 103 (96-114) mmol/L Carbon Dioxide 27 (20-32) mmol/L Anion Gap 9 (7-15) mEq/L BUN 14 (5-24) mg/dL Creatinine 0.8 (0.5-1.5) mg/dL Estimated Creat Clear 123.97 Estimated GFR 115 ml/min Glucose 99 (60-115) mg/dL Calcium 9.7 (8.4-10.6) mg/dL Total Bilirubin 0.9 (0.1-1.5) mg/dL AST 35 (12-35) U/L ALT 29 (4-50) U/L Alkaline Phosphatase 49 (40-150) U/L Troponin I < 0.01 L (0.01-0.04) ng/mL Total Protein 8.0 (6.0-8.3) g/dL Albumin 4.7 (3.3-5.0) g/dL Lipase 43 (23-300) U/L Urine Color Yellow (Yellow) Urine Appearance Clear (Clear) Urine pH 7.0 (5.0-8.5) Ur Specific [place] 1.025 (1.000-1.030) Urine Protein Negative (Negative) Urine Glucose (UA) Negative (Negative) Urine Ketones Negative (Negative) Urine Blood Trace-intact A (Negative) Urine Nitrite Negative (Negative) Urine Bilirubin Negative (Negative) Urine Urobilinogen 0.2 (0.2-1.0) Ur Leukocyte Esterase Negative (Negative) Urine RBC 0-2 (0-2) Urine WBC 0-2 (0-5) Ur Squamous Epith Cells None (None-Few) Urine Bacteria None (None) SARS-CoV-2 (PCR) Negative SARS-CoV-2 (Negative) Influenza Type A (PCR) Negative PCR FLU A (Negative) Influenza Type B (PCR) Negative PCR FLU B (Negative) Imaging Data CT scan - abdomen: Radiologist's impression: INDICATION: Bloating and epigastric pain. COMPARISON: There are no prior studies for comparison TECHNIQUE: CT examination of the abdomen and pelvis was performed following the uneventful intravenous administration of 89 cc of Isovue 370. Thin section axial images were obtained from the lung bases through the pubic symphysis. Oral contrast was not administered. Please note that all CT scans at this facility use dose modulation, iterative reconstruction, and/or weight-based dosing when appropriate to reduce radiation dose to as low as reasonably achievable. FINDINGS: LUNG BASES: The lung bases as visualized appear normal.The heart size is normal at the lung bases. LIVER/BILIARY SYSTEM:The liver is normal in size and configuration. There is no focal mass and there is no intra- or extra hepatic biliary ductal dilatation.The gall bladder appears normal. Hepatic steatosis ADRENALS: Normal KIDNEYS, URETERS and BLADDER:The kidneys appear normal. No visible mass, calculus or hydronephrosis. The ureters and bladder as visualized appear normal. SPLEEN:Normal appearance. PANCREAS: Appears normal. RETROPERITONEUM and MESENTERY: There is no mass, adenopathy or aortic aneurysm. GASTROINTESTINAL SYSTEM: Stomach and colon appear normal. There is a small bowel to small bowel intussusception identified. This is best seen on axial images 63 through 73. These are usually considered to be incidental transitory findings in the small bowel of an adult, in the absence of a visible mass or obstruction. Occasionally, these are followed up in the nonacute care setting such as by CT or MR enterography. Appropriate follow-up consultation recommended. PELVIS: No mass, adenopathy or free fluid. OSSEOUS STRUCTURES and ABDOMINAL WALL: There is an age-appropriate appearance of the osseous structures.No significant abdominal wall defect. OTHER: No free fluid or free air. IMPRESSION: There is a small bowel to small bowel intussusception without directly visible mass or bowel obstruction. These are generally considered incidental transitory findings of low chance for clinical significance. Sometimes, these are followed up in the nonacute care setting by CT or MR enterography. Appropriate follow-up evaluation recommended. Otherwise overall unremarkable examination Please note that all CT scans at this facility use dose modulation, iterative reconstruction, and/or weight-based dosing when appropriate to reduce radiation dose to as low as reasonably achievable. Dictated by Billy Valentino MD @ 07/12/2023 1:22:50 PM ECG Data Attestation: I personally reviewed and interpreted this ECG as follows: Prior ECG tracings: available for review (09/21/2022) Interpretation: Normal sinus rhythm the rate 69 beats per minute, normal intervals, normal axis, no ST or T-wave abnormalities. There is an incomplete right bundle-branch block. This is similar to previous EKG Discharge Plan Discharge Clinical Impression: Abdominal pain Qualifiers: Abdominal location: epigastric Qualified Code(s): R10.13 - Epigastric pain Patient Disposition: Home, Self-Care Condition: Stable Instructions: Abdominal Pain (ED) Additional Instructions: Follow-up with your primary care provider. CT scan did show intussusception in your small bowel. This is usually incidental and transient finding and if it is becoming symptomatic you can follow-up outpatient. Return for new or worsening symptoms. Prescriptions: No Action albuterol sulfate [Ventolin HFA] 90 mcg/actuation HFA aerosol inhaler 2 puff INHALATION Q4H PRN (Reason: wheezing) Follow Up/Referrals: Provider,Not a Local [Primary Care Provider] - Stand Alone Forms: [employer] Info Instructions
--- OUTSIDE RECORDS SUMMARY | 2023-07-12 11:14 | XMS_ITS | Continuity of Care Document ---
Author Name Unknown Organization [facility] Address [address] [place] [address] Phone Care Team Providers Care Polysomnographic Technician Name Role Phone Will Rahul SHIPMAN Unavailable Unavailabl e Medications Medication Instructions Dosage Effective Dates (start - stop) Status Comments Latuda 40 mg tablet take 1 tablet by ora l route every day with food (at least 350 calories) 40 MG - Active lamotrigine 200 mg tablet take 1 tablet by oral route every day 200 MG - Active Proair Digihaler 90 mcg/actuation aerosol powder breath act, sensor inhale 2 puff by inhalation route every 4 - 6 hours as needed as needed 180 MCG - Active Procedures Procedure Date Drug Urine Toxology With Chromatography Drug test def 1-7 classes OFFICE/OUTPATIENT VISIT, NEW Advance Directives Directive Yes / No Effective Date File Name No Information Encounters Encounter Description Practice Location Reason(s) For Visit Diagnoses Date Provider Providers Copied on Encounter [facility], [address] [place] [address], [place], [id number] , [place] tel:[phone] [facility] No Information 2 Portillo Kay. [address] [place], [place], [id number] , [place]. tel:[phone] [facility], [address], [place], [address] , [place] tel:[phone] [facility] [place] No Information 2 Berkley Cervantes. [address], [place], [place], [address] , [place]. tel: [phone] Referring Provider: Brenden Scales [facility] [address] [place], [address]. [phone] OFFICE/OUTPAT IENT VISIT, [facility], [address] [place], [address] , [place] tel: [phone] [facility] [place] Back Pain (chief complaint) Chronic pain syndromeOther intervertebral disc degeneration, lumbar regionPain in left ankle and joints of left footBipolar disorder, unspecifiedOther penitentiary (current) drug therapy Sep- 2 Berkley Cervantes. [address] [place] [address] [address], [place], [place], [id number] , [place]. tel: [phone] Referring Provider: Brenden Scales [facility] [address] [place], [address]. [phone] Family History Family Member Type Diagnosis Age At Onset No Information Payers Payer name Insurance type Covered libertarian ID Susi camacho(s) [employer] [id number] Social History Type Description Quantity Date Captured Comments Alcohol Use Details Unknown Caffeine Use Details Unknown Tobacco Use Status No Information Smoking Status No Information Sex Male Chief Complaint And Reason For Visit No Information Reason For Referral Reason For Referral No Information Plan Of Treatment Date Type Action Status Goal Unhealthy drug use screening . Due on due Goal PHQ-9. Due on du e Goal Hepatitis C screening. Due o n due Goal Height. Due on d ue Goal Review Allergy List. Due on due Goal Tobacco Use. Due on 022 due Goal Weight. Due on d ue Goal Update Social History. Due o n due Goal Medication Reconciliation. D ue on due Goal Height. Due on d ue Goal Unhealthy drug use screening . Due on due Goal Medication Reconciliation. D ue on due Goal PHQ-9. Due on du e Goal Update Social History. Due o n due Goal Hepatitis C screening. Due o n due Goal Tobacco Use. Due on due Goal Weight. Due on d ue Goal Review Allergy List. Due on due Goal Hepatitis C screening. Due o n due Goal Weight. Due on d ue Goal Review Allergy List. Due on due Goal Update Social History. Due o n due Goal Medication Reconciliation. D ue on due Goal Tobacco Use. Due on due Goal Height. Due on d ue Goal PHQ-9. Due on du e Goal Unhealthy drug use screening . Due on due History Of Present Illness Encounter Date Complaint History Of Prese nt Illness Back Pain Severity level i s 7. Duration: chronic. The problem is worsening. It occurs persistently. The client describes the pain as an ache, deep, numbness, sharp, shooting, stabbing and throbbing. Symptoms are aggravated by bending, lifting, lying/rest, running, twisting, walking, movement and changing positions. Symptoms are relieved by ice, physical therapy, stretching and rest. Comments: Gino is a 37 y/o male here for initial consult for chronic low back and L ankle pain referred by Dr. Brenden Scales through [facility]. Pain started 10 years ago after an injury from skateboarding. States his L ankle never completely healed and his back pain has worsened over the past several years. Pain is described as constant, aching, deep, numbness, sharp, shooting, stabbing, and throbbing. Pain averages 7/10. Reports Hx of bipolar disorder.Gino has tried Ibuprofen and Celebrex without lasting relief. Currently completes LESIs with Dr. Scales with benefit.The patient is currently managed on Ibuprofen.Patient is interested in medical cannabis certification through [facility]. No other concerns today. Functional Status Date Functional Assessmen t No Information Instructions Date Instruction Additional Infor mation No Information Assessments Type Assessment Date No Information Patient Care Teams Name Effective Dates (start - stop) Status Members No Information
--- OUTSIDE RECORDS SUMMARY | 2023-07-12 11:14 | XMS_ITS | Continuity of Care Document ---
Author Name Unknown Organization [facility] Address [address] [place] [address] Phone Care Team Providers Care Finance Executive Name Role Phone Renzo SWAN, PhD, Jaycob Burt Unavai lable Allergies, Adverse Reactions, Alerts Substance Reaction Status Criticality No Known Allergies Active No Inform ation Medications Medication Instructions Dosage Effective Dates (start - stop) Status Comments LAMOTRIGINE (unknown strength) Not Available - Active FLONASE ALLERGY RELIEF (unknown strength) Not Available - Active ALBUTEROL SULFATE (unknown strength) Not Available - Active Procedures Procedure Date Office/Outpatient Visit,Est, Low 2021 Office/Outpatient Visit,New, Mod 2020 Office/Outpatient Visit,Est, Mod 2015 Office/Outpatient Visit,Est, Mod 2015 Office/Outpatient Visit,New, Mod 2014 Advance Directives Directive Yes / No Effective Date File Name No Information Encounters Encounter Description Practice Location Reason(s) For Visit Diagnoses Date Provider Providers Copied on Encounter Office/Outpat ient Visit,Est, Low [facility], [address], [place], [place], [id number], [place] tel:[phone] [facility] [place] Low back pain, unspecified 2 Renzo Devries. [facility], [address], [place], [address], [place]. tel:[phone] Referring Provider: Jaycob Muller, [facility] [address], [place], [address]. tel:[phone] Office/Outpat ient Visit,New, Mod [facility], [address], [place], [place], [id number], [place] tel:[phone] [facility] Low back pain 1 Renzo Devries. [facility] [place], [address] [place] [address] [address], [place], [address], [place]. [phone] Referring Provider: Amrik Yeh, [facility] [address], [address], [place], [address] . tel:[phone] Office/Outpat ient Visit,Est, Mod [facility], [address], [place], [place], [address], [place] tel:[phone] [facility] [place] Other intervertebral disc degeneration, lumbar region 6 Panvica Amrik. [facility], [address] [place] [address], [address], [place], [place], [id number] , [place]. tel:[phone] Referring Provider: Amrik Yeh, [facility] [address], [address], [place], [address] . tel:[phone] Office/Outpat ient Visit,Est, Mod [facility], [address], [place], [place], [address], [place] tel:[phone] [facility] [place] Other intervertebral disc degeneration, lumbosacral region 6 Panvica Amrik. [facility], [address] [place] [address], [address], [place], [place], [id number] , [place]. [phone] Referring Provider: Amrik Yeh, [facility] [address], [address], [place], [address] . tel:[phone] Office/Outpat ient Visit,New, Mod [facility], [address], [place], [id number], [place] tel:[phone] [facility] [place] Other intervertebral disc degeneration, lumbosacral region 5 Maura Rowley. [facility], [address] [place] [address], [address], [place], [place], [address] , [place]. tel:[phone] Referring Provider: Amrik Yeh, [facility] [address] [place] [address], [address], [place], [address] . tel:[phone] Family History Family Member Type Diagnosis Age At Onset No Information Payers Payer name Insurance type Covered constitution party ID Susi camacho(s) [employer] [place] [id number] Social History Type Description Quantity Date Captured Comments Alcohol Use Details Unknown Caffeine Use Details Unknown Tobacco Use Status Occasional cigarette smoker Smoking Status Current some day smoker Smoking Tobacco Use Details Cigarette: No Details Available Cigarette: No Details Available Sex Male Vital Signs Date / Time: Height Weight BMI Pulse Rate Blood Pressure Temperature Respiratory Rate Body Surface Area Head Circumference Head Circ. Percentile Wt./Zacarias. Percentile BMI percentile Pulse Ox Inhaled Ox 2:54 PM 68.00 in 80.739 kg (178.00 lbs) 27.0 6 kg/m eter (2) Chief Complaint And Reason For Visit No Information Reason For Referral Reason For Referral No Information History Of Present Illness Encounter Date Complaint History Of Prese nt Illness No Information Functional Status Date Functional Assessmen t No Information Instructions Date Instruction Additional Infor mation No Information Assessments Type Assessment Date No Information Patient Care Teams Name Effective Dates (start - stop) Status Members No Information
[2023-07-12 11:48] LABS: Basophils Absolute Auto 0.03 K/uL (0.00-0.30); Basophils Percent Auto 0.5 % (0.0-3.0); Eosinophils Absolute Auto 0.41 K/uL (0.00-0.50); Eosinophils Percent Auto 6.7 % (0.0-7.0); Hematocrit 48.3 % (37.0-53.0); Hemoglobin* 15.7 gm/dL (13.5-17.5); Immature Granulocytes Abs Auto 0.01 K/uL (0.00-0.30); Immature Granulocytes Pct Auto 0.2 %; Lymphocytes Percent Auto 22.8 % (20-44); Mean Corpuscular HGB Conc 33 gm/dL (32-36); Mean Corpuscular Hemoglobin 29 pg (26-34); Mean Corpuscular Volume 89 fL (80-100); Monocytes Percent Auto 7.3 % (0.0-11.0); Neutrophils Absolute Auto 3.85 K/uL (1.7-7.0); Neutrophils Percent Auto 62.5 % (42.0-72.0); Platelet Count* 250 K/uL (140-440); RDW Coefficient of Variation % 11.8 % (11.5-15.5); Red Blood Count 5.42 m/uL (4.30-5.90); White Blood Count* 6.15 K/uL (4.50-11.00)
[2023-07-12 11:51] LABS: Slide Review Reflex No
[2023-07-12 12:04] LABS: Albumin* 4.7 g/dL (3.3-5.0); Chloride* 103 mmol/L (96-114); Potassium* 4.6 mmol/L (3.6-5.1); Sodium* 139 mmol/L (135-149)
[2023-07-12 12:06] LABS: Anion Gap 9 mEq/L (7-15); Aspartate Amino Transferase* 35 U/L (12-35); Bilirubin Total* 0.9 mg/dL (0.1-1.5); Carbon Dioxide* 27 mmol/L (20-32); Creatinine* 0.8 mg/dL (0.5-1.5); Est. Creatinine Clearance* 123.97; Estimated Glomerular Filt Rate 115 ml/min
[2023-07-12 12:07] LABS: Alanine Aminotransferase* 29 U/L (4-50); Alkaline Phosphatase* 49 U/L (40-150); Blood Urea Nitrogen* 14 mg/dL (5-24); Calcium* 9.7 mg/dL (8.4-10.6); Glucose* 99 mg/dL (60-115); Lipase* 43 U/L (23-300)
[2023-07-12 12:20] LABS: Troponin I* < 0.01 ng/mL (0.01-0.04)
== END 2023-07-12 14:06 | disposition home or self-care (01) ==
PROVIDERS: Emergency Provider Student in an Organized Health Care Education/Training Program
DX: R10.13 Epigastric pain (principal)
CPT/HCPCS: 36415; 74177; 80053; 81001; 83690; 84484; 85025; 87631; 93005; 99283; 99284; Q9967

== ENCOUNTER 2023-09-03 06:06 | Day surgery (SDC) | payer MEDICAID, SELFPAY ==
[2023-09-03] VITALS (12 sets, daily range): BP systolic 104–129; BP diastolic 75–96; PULSE 68–97; RESP 16–20; TEMP 36.4–37.2; O2SAT 97–100; BMI 27.0
[2023-09-03] MEDS: LACTATED RINGERS 1000 ML 1,000 ML 100 ML IV ×2 (06:45→09:43)
[2023-09-03] MEDS: MIDAZOLAM HCL 1 MG/ML inj IVP (07:10)
[2023-09-03] MEDS: fentaNYL 100 MCG/2 ML inj IVP (07:11)
--- NOTE | 2023-09-03 07:26 | SUR.PREOP ---
TIME?OUT:?0709 PT/RN/MDA?VERIFICATION?OF?SURGICAL?SITE,?PROCEDURE,?AND?CONSENT OBTAINED?PRIOR?TO?INVASIVE?PROCEDURE.
--- NOTE | 2023-09-03 07:33 | CRLHL7_ITS ---
For Patients: As a result of the Century Cures Act, medical imaging exams and procedure reports are released immediately into your electronic medical record. You may view this report before your referring provider. If you have questions, please contact your health care provider. Indication: left ankle scope Technique: One fluoroscopic image of the left ankle. Fluoroscopic time 6.3 seconds. IMPRESSION: Fluoroscopic guidance for left ankle scope. Dictated by Morris Aguilar MD @ 09/03/2023 10:34:24 AM (Electronically Signed)
[2023-09-03] MEDS: CEFAZOLIN 2 GM INJ IVP (07:39)
--- NOTE | 2023-09-03 08:53 | W.PM.NB ---
Nerve Block Nerve Block Time Seen by Provider: 07:13 Date Seen: 09/03/23 Type of block requested by surgeon for post-operative analgesia: popliteal Side: left Time out performed: Yes Verification of patient name: Yes Verification of date of : Yes Site marking: site marked Name of person performing procedure: Teddy Continuous monitoring Was continuous monitoring of O2 sat, B/P, welfare investigator, recorded every 15 minutes?: Yes Procedure Checklist: sterile prep, needles and gloves Ultrasound guided. Images saved: Yes Medications given in 5ml increments after negative aspiration: Ropivicaine %: 0.5 mL: 25 Needle gauge: 20 Patient tolerated procedure well: Yes Additional comments: Needle noted adjacent to nerve Block Charges Block Charge (with Pro Fee): Sciatic Nerve Use of Ultrasound Machine for Block: Yes- US Guidance/pain block
--- NOTE | 2023-09-03 08:54 | W.PM.NB ---
Nerve Block Nerve Block Time Seen by Provider: 07:13 Date Seen: 09/03/23 Type of block requested by surgeon for post-operative analgesia: adductor canal Side: left Time out performed: Yes Verification of patient name: Yes Verification of date of : Yes Site marking: site marked Name of person performing procedure: Teddy Continuous monitoring Was continuous monitoring of O2 sat, B/P, environmental monitoring technician, recorded every 15 minutes?: Yes Procedure Checklist: sterile prep, needles and gloves Ultrasound guided. Images saved: Yes Medications given in 5ml increments after negative aspiration: Ropivicaine %: 0.5 mL: 20 Needle gauge: 20 Patient tolerated procedure well: Yes Additional comments: Needle noted adjacent to nerve Block Charges Block Charge (with Pro Fee): Femoral Nerve Use of Ultrasound Machine for Block: Yes- US Guidance/pain block
--- NOTE | 2023-09-03 10:40 | W.ANESCHARGE ---
Anesthesia Charges Start Date/Time Anesthesia Start Date: 09/03/23 Anesthesia Start Time: 07:27 Stop Date/Time Anesthesia Stop Date: 09/03/23 Anesthesia Stop Time: 10:37
--- NOTE | 2023-09-03 11:56 | SUR.PHASEII ---
PT here to instruct on crutches and measure for appropriate length.
--- NOTE | 2023-09-03 12:13 | REH.PT ---
Pt fitted for and issued crutches for home use. Pt had used ax crutches in the past and was able to demo ind with transfers, gait and verbally understand stair amb. Ind with gait while maintaining NWB on left LE. No Charge as less than 8 mins were spent with pt.
--- NOTE | 2023-09-07 07:57 | PM.PROC ---
Procedure Note Date Seen: 09/03/23 Date of procedure: 09/03/23 Will [facility] bill your pro fee for this procedure?: No Pre-op diagnosis: 1. Osteochondritis desiccans left ankle 2. Deltoid ligament tear left Post-op diagnosis: same Procedure: 1. Ankle arthroscopy with OCD debridement, microfracture and cartilage graft left ankle 2. Repair of deltoid ligament left ankle Procedure Description: Materials: Arthrex internal brace kit x1, Arthrex bio cartilage graft Complications: None apparent Indication for surgery: Patient had ongoing pain due to injury of the cartilage ankle. He has not responded to conservative care wishes to proceed with surgical correction. Reviewed the procedure, recovery, expectations and potential complications. These include but are not limited to: Poor wound healing, infection, continued pain, potentially future surgery, stiffness, deep venous thrombosis, pulmonary embolism possible . Understands risks and written consent was obtained. Site was marked. Procedure in detail: Patient was brought the operating room placed in supine position on the operating table. He had a preoperative popliteal and adductor block by Anesthesia. He was placed under general anesthesia. He was then prepped and draped in a sterile fashion. Standard time-out protocol was followed. Left limb was exsanguinated and the tourniquet inflated. Fifteen mL of sterile saline was injected into the ankle joint. 1 cm incision was made over the anterior medial ankle joint just medial to the anterior tibial tendon. Incision was bluntly deepened with a hemostat down to the joint capsule. Blunt or greater inserted into the ankle joint. Scope was placed and primary survey performed. This significant synovitis was noted throughout joint. Lateral translation district administrative assistant making a 1 cm incision for the anterior lateral ankle joint blunt dissection carried down to joint capsule. Shaver was inserted in the inflamed synovium debrided. There was mild loss of cartilage the anterior aspect of the talar dome. Lateral gutter was free significant scar tissue. The neuro probe was used and the flap cartilage over the medial talar dome was identified. The flap of cartilage was too far posterior to reach with the scope. The medial incision was extended distally and the blunt dissection was taken down to the joint capsule. Incision was made through the joint capsule distally. This exposed the medial aspect of the talus and the medial malleolus. The osseous debris within the medial gutter was removed with a rongeur. The flap of cartilage on the medial talar dome was identified and a scalpel and curette was used to remove this cartilage. I utilized the scope to the open wound to verify that the loose cartilage had been removed and the remaining cartilage was well adhered to the talar dome. Microfracture was then performed on the talar dome at the area of the lesion. Joint was thoroughly irrigated normal sterile saline. Biocartilage was then applied to the lesion. It was packed into the void until anatomic with the surrounding healthy cartilage. I attempted to cover the graft with fibrin glue but it was . We instead utilized platelet rich plasma and the patient's own thrombin mixed using the Arthrex system to create osteogenic glue. This was applied to the graft all in place. A 3.5 mm SwiveLock anchor was placed in the talus just distal to the medial articular surface. The ankle was held in anatomic alignment and the FiberTape tensioned appropriately and a 4.5 mm SwiveLock anchor placed in the medial malleolus. This allowed normal range of motion of the ankle but prevented abnormal motion. Deltoid ligament and joint capsule repaired with 3-0 Vicryl. Subcutaneous tissues reapproximated 4-0 Monocryl and skin closed with 4-0 Prolene. Sterile dressing was applied. Tourniquet was released. Normal capillary fill time returned to all digits. Well-padded posterior splint was applied with the ankle in neutral. Patient was transferred from OR to PACU with vital signs stable. He will be discharged per Anesthesia. He is given written and verbal postop instructions. He was given oxycodone for pain. Follow up in clinic later this week. Anesthesia: GETA and regional Surgeon: Thaddeus Salmon DPM FACFAS Estimated blood loss (mL): 2 Condition: stable Disposition: PACU
== END 2023-09-03 12:17 | disposition home or self-care (01) ==
PROVIDERS: PCP Student in an Organized Health Care Education/Training Program; Visit Provider Podiatrist
PROC: (CPT 29870; principal; 2023-09-03 07:15)
DX: M93.272 Osteochondritis dissecans, left ankle and joints of left foot (principal); G89.18 Other acute postprocedural pain
CPT/HCPCS: 29898; 29892; 27695; 01462; 64445; 64447; 73600; 76000; 76942; C1713; C1762; J0690; J1100; J2250; J2371; J2405; J2704; J2795; J3010; J7120

== ENCOUNTER 2023-12-14 10:06 | Outpatient (RCR) | payer MEDICAID, SELFPAY ==
--- NOTE | 2023-12-14 13:38 | PT.OPEX ---
PT [place] Outpatient Eval PT [facility] Outpatient Eval Start: 11/23/23 07:52 Freq: Status: Active Protocol: Document 12/14/23 10:40 NLR (Rec: 12/14/23 12:09 NLR [id number]) E-signed By Marietta Vera DPT Physical Therapy Outpatient Evaluation Insurance Information Recert Due Date 03/13/24 Insurance Name [facility],Medicaid Medical Diagnosis M93.279 Osteochondritis dissecans of ankle S93.422S Tear of deltoid ligament of left ankle Z09 - Treating Diagnosis M25.572 pain left ankle M25.672 stiffness left ankle M76.822 left posterior tibialis tendinitis Referring MD Thaddeus Salmon DPM Subjective Subjective Pain and stiffness in left ankle following surgery, he notes it is frustrating that he is four months out and still struggling. Pain is affecting his daily life. He has recently returned to work, which involves a lot of standing and it is very difficult due to edema, pain and stiffness. He reports the initial injury was a fractured ankle from skateboarding when he was a kid. Pain Comments 09/14, left lateral ankle at distal lateral tibia around area of ATFL/figular notch, increases with end range stance or any movement where he is weight bearing and dorsiflexing. Pain wakes him up, is bad in AM, worsens throughout the day and is accompanied by edema at lateral distal tibia. Pain is constant, sharp and burning. Some numbness in dorsum of foot still present. Date of Surgery (If applicable) 09/03/23 Current Work Status [employer] Occupation [employer]. Standing all day. Working on getting a [employer] license so he can minimize his physical demands at work. Preferred Name [facility]VON Precautions Treatment Precautions/Contraindications 09/03/23 - OCD talus repair with cartilage graft and deltoid ligament repair due to osteochondritis dissecans from previous injury - no known surgical precautions at this time Weight Bearing Status Full Weight Bearing Therapy Limitations/Systems Review Not Limited Objective Other/Pertinent Objective ROM: Left ankle AROM DF 0, PF 50 STRENGTH: Left ankle DF grossly 3+/5, PF grossly 4/5 PALPATION: Tender to palpation distal medial tibia above talus at fibular notch, belly of posterior tibialis POSTURE: B pes planus EDEMA: left medial ankle at end of day FLEXIBILITY: Hypoflexibility noted left gastrocsoleus and posterio tibialis FOOTWEAR: New Balance shoes with after market insoles, may need stiffer medial arch supports Assessment Assessment/Impression Mr. Hernandez is a very pleasant 38 year old male who is approaching four months status post left ankle OCD of talus and deltoid ligament repair on 09/03/23. He presents with significant pain in lateral left ankle and medial osullivan with poor active dorsiflexion at left ankle resulting in pain and edema with walking and general mobility. He would benefit from skilled PT to improve strength and range of motion at his left ankle with goal of improved gait mechanics and less pain. Primary Functional Limitations Difficulty standing for work, difficulty walking long distances, difficulty going up and down stairs Plan of Care Rehabilitation Potential Good Rehabilitation Potential Comments Patient is otherwise healthy and motivated to improve in order to return to prior level of function. Physical Therapy Goals 1. Patient will be independent with home exercise program as instructed, modified and progressed by physical therapist in order to be independently and actively participating in their rehabilitation and return to prior level of function. Goal to be achieved by 02/01/2024. 2. Patient will demonstrate ability to stand for 120 minutes(s) without significant increase in pain greater than 2/10 to allow patient to be able to safely and independently return to pre- onset prior level of function for functional activities such as going to work. Goal to be achieved by 02/01/2024. 3. Patient will ascend/descend 2 full flight(s) of stairs with [id number] pattern without significant increase in difficulty or pain over 2/ 10 allowing for safe and independent mobility through their home/work environment. Goal to be achieved by 2023. 4. Patient will demonstrate ability to walk for 60 minutes (s) without significant increase in pain greater than 2/10 to allow patient to be able to safely and independently return to participation in desired level of function with daily activities such going to workwithout pain or difficulty . Goal to be achieved by . Coordination/Communication With Referral Source Treatment Plan/Direct Interventions Electrical Stimulation,Gait Training,Joint Mobilization, Manual Therapy,Neuromuscular Re-ed,Self-Care/Home Management,Therapeutic Exercises Direct Interventions Clarification Dry Needling Comments Frequency/Duration 1 visit per week for 8-10 weeks Patient Will Be Discharged From Therapy Completion of LTG(s),Skills Plateau,Independent w/HEP, Independently Progressing Evaluation Billing Untimed Code Treatment Minutes 30 PT Eval No Charge No Complexity Low Certification Information Initial Certification Date 03/13/24 Physician Comment/Change : Physician NPI Number #
== END 2024-02-19 17:48 | disposition home or self-care (01) ==
PROVIDERS: PCP Student in an Organized Health Care Education/Training Program; Visit Provider Podiatrist
DX: M93.279 Osteochondritis dissecans, unspecified ankle and joints of foot (principal); S93.422S Sprain of deltoid ligament of left ankle, sequela; M25.572 Pain in left ankle and joints of left foot; M25.672 Stiffness of left ankle, not elsewhere classified; M76.822 Posterior tibial tendinitis, left leg; Z51.89 Encounter for other specified aftercare
CPT/HCPCS: 97110; 97140; 97161

== ENCOUNTER 2024-01-21 08:14 | Emergency (ER) | payer MEDICAID, SELFPAY ==
[2024-01-21] VITALS (31 sets, daily range): BP systolic 108–137; BP diastolic 77–86; PULSE 61–87; RESP 29; TEMP 36.7; O2SAT 94–99; BMI 27.3
--- NOTE | 2024-01-21 08:34 | ED.CHESTPAIN ---
HPI - Chest Pain General Time Seen by Provider: 08:34 Date Seen: 01/21/24 Chief Complaint: Chest Pain Stated Complaint: intermittent chest pains Time Seen by Provider: 01/21/24 08:34 Source: patient and RN notes reviewed Mode of arrival: ambulatory Limitations: no limitations History of Present Illness HPI narrative: Gino is a very pleasant 38-year-old male with history of asthma, left ankle surgery with prolonged immobility, past history of alcohol abuse, who comes to the emergency room for evaluation regarding chest pain. Patient notes that for approximately 2 months he has had intermittent left-sided chest pain. He shows this to be anterior with radiation laterally but not into the back in the lower aspect of the middle 3rd of his torso. He cannot think of any particular time that this pain comes on. He states that comes and goes. Currently he has no pain but it did occur just a bit ago. Today the pain seemed worse and thus he came to the emergency room. He states he still been able to go to the gym and walking on the treadmill does not bother him. Taking a deep breath does not trigger this pain. He does agree that his ankle and calf are still painful from the surgery. The surgery was in August of 2023 and he ended up wearing of boot for approximately 2 months. Unfortunately it has not healed well. Gino thinks that he has been wheezing a bit more lately but attributes that to the wind and dust in the air. He has not had fever or chills today. He did have influenza A a month ago and states that it was quite bad. Last week he thinks he over ate and then experienced a lot of pain in the right side of his chest. That has only happened 1 time. Otherwise, the majority of pain has been in his left chest. Gino denies abdominal pain, nausea, vomiting. Nursing notes that patient had a stress test in the fall that was normal. Related Data Home Medications Medication Instructions Recorded Confirmed albuterol sulfate 90 mcg/actuation 2 puff inhalation Q4H PRN wheezing 07/12/23 01/21/24 aerosol inhaler (Ventolin HFA) Allergies Allergy/AdvReac Type Severity Reaction Status Date / Time No Known Drug Allergies Allergy Verified 01/21/24 08:32 Review of Systems Status of ROS Reports: 10 or more systems reviewed and unremarkable except as noted in History and below Const Denies: fever or chills ENMT Denies: throat pain, neck pain or difficulty swallowing Cardio Reports: chest pain; Denies: palpitations, edema, lightheadedness or shortness of breath with exertion Resp Reports: cough (Nonproductive) and wheezing; Denies: shortness of breath GI Denies: abdominal pain, nausea, vomiting or difficulty swallowing Musculo Reports: extremity pain; Denies: back pain or neck pain Allergy/Immuno Reports: wheezing PFSH PFSH Medical History Hx of substance abuse ?F19.11 - Other psychoactive substance abuse, in remission (ICD-10) Borderline personality disorder ?F60.3 - Borderline personality disorder (ICD-10) Bipolar 1 disorder ?F31.9 - Bipolar disorder, unspecified (ICD-10) Alcohol use disorder, severe, in sustained remission ?F10.21 - Alcohol dependence, in remission (ICD-10) Moderate episode of recurrent major depressive disorder ?F33.1 - Major depressive disorder, recurrent, moderate (ICD-10) Social History Smoking Status: Light tobacco smoker Do you use any of these nicotine containing products: None How often do you have a drink containing alcohol: monthly or less AUDIT-C Alcohol total score: 1 Non-prescribed substance use: marijuana (any form) Non-prescribed substance use details: medical thc service: No Exam Narrative Exam Narrative: Alert and oriented. Very pleasant gentleman in no acute distress. External ears eyes nose clear. Face symmetrical. Neck is supple. No lymphadenopathy Heart with regular rate and rhythm. No evidence of a murmur or additional heart sounds. Lungs are clear in all lung reyes. However I do hear an audible wheeze standing next to him in the exam room. This clears after some coughing. Abdomen is soft nontender. Lower extremities show no evidence of edema. However he does have tenderness in the left calf. Moving all extremities. Const Vital Signs, click to edit/add: Vital Signs - 24 hr 01/21/24 08:28 01/21/24 08:31 01/21/24 08:32 Temperature 98.0 F Pulse Rate 74 68 Pulse Rate [Pulse Oximeter] 80 Respiratory Rate 29 H Blood Pressure 108/78 Blood Pressure [Left Upper Arm] 137/84 Pulse Oximetry 99 98 97 Oxygen Delivery Method Room Air 01/21/24 08:45 01/21/24 09:07 01/21/24 09:15 Temperature Pulse Rate 75 77 79 Pulse Rate [Pulse Oximeter] Respiratory Rate Blood Pressure Blood Pressure [Left Upper Arm] Pulse Oximetry 94 99 96 Oxygen Delivery Method 01/21/24 09:30 01/21/24 09:36 01/21/24 09:45 Temperature Pulse Rate 65 71 68 Pulse Rate [Pulse Oximeter] Respiratory Rate Blood Pressure 108/78 Blood Pressure [Left Upper Arm] Pulse Oximetry 99 95 98 Oxygen Delivery Method 01/21/24 10:00 01/21/24 10:02 01/21/24 10:15 Temperature Pulse Rate 69 87 61 Pulse Rate [Pulse Oximeter] Respiratory Rate Blood Pressure 115/80 Blood Pressure [Left Upper Arm] Pulse Oximetry 98 97 98 Oxygen Delivery Method 01/21/24 10:30 01/21/24 10:32 01/21/24 10:33 Temperature Pulse Rate 65 83 65 Pulse Rate [Pulse Oximeter] Respiratory Rate Blood Pressure 117/79 Blood Pressure [Left Upper Arm] Pulse Oximetry 96 96 98 Oxygen Delivery Method 01/21/24 10:45 01/21/24 11:00 01/21/24 11:02 Temperature Pulse Rate 62 74 64 Pulse Rate [Pulse Oximeter] Respiratory Rate Blood Pressure 115/77 Blood Pressure [Left Upper Arm] Pulse Oximetry 97 98 97 Oxygen Delivery Method 01/21/24 11:18 01/21/24 11:30 01/21/24 11:32 Temperature Pulse Rate 81 66 82 Pulse Rate [Pulse Oximeter] Respiratory Rate Blood Pressure 117/85 Blood Pressure [Left Upper Arm] Pulse Oximetry 98 98 98 Oxygen Delivery Method 01/21/24 11:45 01/21/24 12:00 01/21/24 12:02 Temperature Pulse Rate 72 71 74 Pulse Rate [Pulse Oximeter] Respiratory Rate Blood Pressure 111/86 Blood Pressure [Left Upper Arm] Pulse Oximetry 97 98 97 Oxygen Delivery Method 01/21/24 12:15 01/21/24 12:30 01/21/24 12:32 Temperature Pulse Rate 65 68 75 Pulse Rate [Pulse Oximeter] Respiratory Rate Blood Pressure 108/82 Blood Pressure [Left Upper Arm] Pulse Oximetry 98 99 97 Oxygen Delivery Method 01/21/24 12:33 01/21/24 12:45 01/21/24 13:00 Temperature Pulse Rate 77 66 78 Pulse Rate [Pulse Oximeter] Respiratory Rate Blood Pressure Blood Pressure [Left Upper Arm] Pulse Oximetry 97 99 99 Oxygen Delivery Method 01/21/24 13:02 Temperature Pulse Rate 81 Pulse Rate [Pulse Oximeter] Respiratory Rate Blood Pressure 110/77 Blood Pressure [Left Upper Arm] Pulse Oximetry 97 Oxygen Delivery Method Documenting provider has reviewed patient's vital signs: yes Course Course ED Course: Differential diagnosis includes but is not limited to PE, DVT, angina, chest wall pain, pleurisy, pneumothorax, biliary colic. Will place IV, draw labs to include CBC, comprehensive panel, lactate, CRP, lipase is, troponin. Will also do EKG lower extremity Doppler and chest x-ray at this time. I am going to add a D-dimer as well. Vital Signs Vital signs: Initial Vital Signs Respiratory Effort Normal, Spontaneous, Non-Labored 01/21/24 08:16 Respiratory Depth Normal 01/21/24 08:16 Vital Signs Temperature 98.0 F 01/21/24 08:28 Pulse Rate 80 01/21/24 08:28 Respiratory Rate 29 H 01/21/24 08:28 Blood Pressure 137/84 01/21/24 08:28 Pulse Oximetry 99 01/21/24 08:28 Oxygen Delivery Method Room Air 01/21/24 08:28 Temperature 98.0 F 01/21/24 08:28 Pulse Rate 81 01/21/24 13:02 Respiratory Rate 29 H 01/21/24 08:28 Blood Pressure 110/77 01/21/24 13:02 Pulse Oximetry 97 01/21/24 13:02 Oxygen Delivery Method Room Air 01/21/24 08:28 MDM - Chest Pain MDM Narrative Medical decision making narrative: 1. Atypical chest pain-patient has 2 reassuring EKGs and negative cardiac enzymes. He has experienced some pain here but he is describing as mere seconds and then it goes away. D-dimer is negative and thus I do not think we need to worry about a DVT as his ultrasound was negative as well. I did do ultrasounds of both lower extremities given his recent surgical history. At this time recommend holding off from lifting weights. He does revealed to me that he recently started back at the gym. I am wondering if this is a muscle strain given his activity. I do not have any evidence for acute coronary event and is EKGs are unchanged from previous. Chest x-ray is also reassuring. I would like him to follow up with this primary MD for re-evaluation. He perhaps needs an additional stress test. However I would recommend chemical stress test as he states that he was poorly tolerant to this for stress test because of his asthma. If his chest pain gets worse is persistent or E as the onset of new symptoms I would like him to return to the emergency room for further evaluation. 2. Disposition-home at this time. Return for worsening symptoms. Patient agrees to our plan. Medical Records Data Attestation: I reviewed the patient's medical records. Lab Data Attestation: I reviewed the patient's lab results. Labs: Lab Results 01/21/24 01/21/24 01/21/24 Range/Units 08:38 08:57 08:57 WBC 5.35 (4.50-11.00) K/uL RBC 5.04 (4.30-5.90) m/uL Hgb 15.0 (13.5-17.5) gm/dL Hct 45.4 (37.0-53.0) % MCV 90 (80-100) fL MCH 30 (26-34) pg MCHC 33 (32-36) gm/dL RDW Coeff of Horace 12.8 (11.5-15.5) % Plt Count 212 (140-440) K/uL Neut % (Auto) 55.1 (42.0-72.0) % Lymph % (Auto) 27.3 (20-44) % [place] % (Auto) 9.9 (0.0-11.0) % Eos % (Auto) 6.9 (0.0-7.0) % Baso % (Auto) 0.4 (0.0-3.0) % Neut # (Auto) 2.95 (1.7-7.0) K/uL Lymph # (Auto) 1.46 (0.90-2.90) K/uL [place] # (Auto) 0.50 (0.00-0.90) K/UL Eos # (Auto) 0.37 (0.00-0.50) K/uL Baso # (Auto) 0.02 (0.00-0.30) K/uL Abs Immat Gran (auto) 0.02 (0.00-0.30) K/uL Imm/Tot Granulo (auto) 0.4 % D-Dimer Quant (PE/DVT) < 0.25 (0.00-0.50) ug/ml Sodium 137 (135-149) mmol/L Potassium 3.8 (3.6-5.1) mmol/L Chloride 107 (96-114) mmol/L Carbon Dioxide 25 (20-32) mmol/L Anion Gap 5 L (7-15) mEq/L BUN 18 (5-24) mg/dL Creatinine 0.7 (0.5-1.5) mg/dL Estimated Creat Clear 141.68 Estimated GFR 120 ml/min Glucose 112 (60-115) mg/dL Lactate 1.1 (0.5-1.9) mmol/L Calcium 9.0 (8.4-10.6) mg/dL Total Bilirubin 0.8 (0.1-1.5) mg/dL AST 23 (12-35) U/L ALT 22 (4-50) U/L Alkaline Phosphatase 56 (40-150) U/L C-Reactive Protein < 0.5 L (0.5-1.0) mg/dL Total Protein 7.5 (6.0-8.3) g/dL Albumin 4.5 (3.3-5.0) g/dL Lipase 57 (23-300) U/L Ethyl Alcohol < 0.01 L (0.01-0.03) % SARS-CoV-2 (PCR) (Negative) Influenza Type A (PCR) (Negative) Influenza Type B (PCR) (Negative) RSV (PCR) (Negative) Lab Acknowledgement Test Added Test Added POC Troponin I 0.00 L (0.01-0.04) ng/ml 01/21/24 01/21/24 Range/Units 10:00 12:29 WBC (4.50-11.00) K/uL RBC (4.30-5.90) m/uL Hgb (13.5-17.5) gm/dL Hct (37.0-53.0) % MCV (80-100) fL MCH (26-34) pg MCHC (32-36) gm/dL RDW Coeff of Horace (11.5-15.5) % Plt Count (140-440) K/uL Neut % (Auto) (42.0-72.0) % Lymph % (Auto) (20-44) % [place] % (Auto) (0.0-11.0) % Eos % (Auto) (0.0-7.0) % Baso % (Auto) (0.0-3.0) % Neut # (Auto) (1.7-7.0) K/uL Lymph # (Auto) (0.90-2.90) K/uL [place] # (Auto) (0.00-0.90) K/UL Eos # (Auto) (0.00-0.50) K/uL Baso # (Auto) (0.00-0.30) K/uL Abs Immat Gran (auto) (0.00-0.30) K/uL Imm/Tot Granulo (auto) % D-Dimer Quant (PE/DVT) (0.00-0.50) ug/ml Sodium (135-149) mmol/L Potassium (3.6-5.1) mmol/L Chloride (96-114) mmol/L Carbon Dioxide (20-32) mmol/L Anion Gap (7-15) mEq/L BUN (5-24) mg/dL Creatinine (0.5-1.5) mg/dL Estimated Creat Clear Estimated GFR ml/min Glucose (60-115) mg/dL Lactate (0.5-1.9) mmol/L Calcium (8.4-10.6) mg/dL Total Bilirubin (0.1-1.5) mg/dL AST (12-35) U/L ALT (4-50) U/L Alkaline Phosphatase (40-150) U/L C-Reactive Protein (0.5-1.0) mg/dL Total Protein (6.0-8.3) g/dL Albumin (3.3-5.0) g/dL Lipase (23-300) U/L Ethyl Alcohol (0.01-0.03) % SARS-CoV-2 (PCR) Negative SARS-CoV-2 (Negative) Influenza Type A (PCR) Negative PCR FLU A (Negative) Influenza Type B (PCR) Negative PCR FLU B (Negative) RSV (PCR) Negative PCR RSV (Negative) Lab Acknowledgement POC Troponin I 0.01 (0.01-0.04) ng/ml Imaging Data Venous US: Attestation: I have reviewed the pertinent imaging results. Radiologist's impression: FINDINGS: Ultrasound of the venous drainage of both lower extremities shows no evidence of deep venous thrombosis. There is normal antegrade flow from the posterior tibial and popliteal veins superiorly through the common femoral vein in both legs. There is normal augmentation and compressibility of these veins. IMPRESSION: No evidence of deep venous thrombosis on ultrasound examination of both lower extremities. Chest x-ray: Attestation: I have reviewed the pertinent imaging results. My impression: No evidence of pneumonia, widened mediastinum. No evidence of pneumothorax. Radiologist's impression: There is mild interstitial change. There is no focal consolidation, effusion, or pneumothorax. The cardiac silhouette is mildly prominent. The bony thorax is grossly intact. Impression: No acute cardiopulmonary abnormality. ECG Data Attestation: I personally reviewed and interpreted this ECG as follows: ECG interpretation date: 01/21/24 Interpretation: EKG by my read shows sinus rhythm at a rate of 83. Patient noted to have an incomplete right bundle-branch block. P.r.n. QT intervals within normal limits. Nonspecific ST/T-wave changes. Compared to previous EKG it is largely unchanged from 2022. Second EKG by my read is largely unchanged from 1st. Discharge Plan Discharge Clinical Impression: Atypical chest pain Patient Disposition: Home, Self-Care Condition: Improved Additional Instructions: Continue to monitor and return to the emergency room for worsening symptoms. Today your EKGs and blood tests are reassuring and there is no evidence of a heart attack that has occurred. In addition your D-dimer was negative as well as your lower extremity ultrasound and therefore I do not think that this is a blood clot in the lungs. Your chest x-ray was also reassuring and normal. At this time I am recommending that you stop lifting weights with the upper body that would include using upper chest and pectoral muscles. Limit intense activity at this time. Follow-up with your primary MD for scheduling of 2nd stress test. You may want to consider a chemical stress test that you do not have to run on a treadmill. Again, return to the emergency room for any increasing symptoms. Prescriptions: No Action albuterol sulfate [Ventolin HFA] 90 mcg/actuation HFA aerosol inhaler 2 puff INHALATION Q4H PRN (Reason: wheezing) Follow Up/Referrals: ISRAEL BERNARDO DO [Primary Care Provider] - Stand Alone Forms: [facility] Info Instructions
--- NOTE | 2024-01-21 08:41 | XR_ITS ---
Patient: TRAVON HERRERA Facility:?[facility] Patient ID:?[id number] Site Patient ID:?[id number]. Site :?1985 Study:?XRay-Chest Portable-01/21/2024 9:25:19 AM Ordering Physician:?Winter Lee Final Report: Indication: Left-sided chest pain Comparison: Single-view chest September 21, 2022 Technique: Single AP view chest Findings: There is mild interstitial change. There is no focal consolidation, effusion, or pneumothorax. The cardiac silhouette is mildly prominent. The bony thorax is grossly intact. Impression: No acute cardiopulmonary abnormality. Dictated by Ranjit German MD @ 01/21/2024 9:44:47 AM Signed by:?Ranjit German MD @01/21/2024 9:44:47 AM (Electronic Signature)
--- NOTE | 2024-01-21 08:42 | US_ITS ---
Patient: TRAVON HERRERA Facility:?[facility] Patient ID:?[id number] Site Patient ID:?[id number]. Site :?1985 Study:?US-Extremity Bilateral LEV BILATERAL-01/21/2024 9:16:19 AM Ordering Physician:?DR. REY Final Report: INDICATION: Left-sided chest pain COMPARISON: None FINDINGS: Ultrasound of the venous drainage of both lower extremities shows no evidence of deep venous thrombosis. There is normal antegrade flow from the posterior tibial and popliteal veins superiorly through the common femoral vein in both legs. There is normal augmentation and compressibility of these veins. IMPRESSION: No evidence of deep venous thrombosis on ultrasound examination of both lower extremities. Dictated by Billy Valentino MD @ 01/21/2024 9:33:11 AM Signed by:?Billy Valentino MD @01/21/2024 9:33:11 AM (Electronic Signature)
[2024-01-21 08:57] LABS: Lactate* 1.1 mmol/L (0.5-1.9)
[2024-01-21 09:06] LABS: Basophils Absolute Auto 0.02 K/uL (0.00-0.30); Basophils Percent Auto 0.4 % (0.0-3.0); Eosinophils Absolute Auto 0.37 K/uL (0.00-0.50); Eosinophils Percent Auto 6.9 % (0.0-7.0); Hematocrit 45.4 % (37.0-53.0); Immature Granulocytes Abs Auto 0.02 K/uL (0.00-0.30); Immature Granulocytes Pct Auto 0.4 %; Lymphocytes Absolute Auto 1.46 K/uL (0.90-2.90); Lymphocytes Percent Auto 27.3 % (20-44); Mean Corpuscular HGB Conc 33 gm/dL (32-36); Mean Corpuscular Hemoglobin 30 pg (26-34); Mean Corpuscular Volume 90 fL (80-100); Monocytes Percent Auto 9.9 % (0.0-11.0); Neutrophils Absolute Auto 2.95 K/uL (1.7-7.0); Neutrophils Percent Auto 55.1 % (42.0-72.0); Platelet Count* 212 K/uL (140-440); RDW Coefficient of Variation % 12.8 % (11.5-15.5); Red Blood Count 5.04 m/uL (4.30-5.90); White Blood Count* 5.35 K/uL (4.50-11.00)
[2024-01-21 09:10] LABS: Slide Review Reflex No
[2024-01-21 09:22] LABS: Albumin* 4.5 g/dL (3.3-5.0)
[2024-01-21 09:23] LABS: Chloride* 107 mmol/L (96-114); Potassium* 3.8 mmol/L (3.6-5.1); Sodium* 137 mmol/L (135-149)
[2024-01-21 09:25] LABS: Anion Gap 5 mEq/L (7-15); Aspartate Amino Transferase* 23 U/L (12-35); Bilirubin Total* 0.8 mg/dL (0.1-1.5); Carbon Dioxide* 25 mmol/L (20-32); Creatinine* 0.7 mg/dL (0.5-1.5); Est. Creatinine Clearance* 141.68; Estimated Glomerular Filt Rate 120 ml/min
[2024-01-21 09:26] LABS: Alanine Aminotransferase* 22 U/L (4-50); Alkaline Phosphatase* 56 U/L (40-150); Blood Urea Nitrogen* 18 mg/dL (5-24); Glucose* 112 mg/dL (60-115); Lipase* 57 U/L (23-300); Total Protein* 7.5 g/dL (6.0-8.3)
[2024-01-21 09:49] LABS: C Reactive Protein* < 0.5 mg/dL (0.5-1.0); Ethanol* < 0.01 % (0.01-0.03)
[2024-01-21 10:11] LABS: D Dimer Quantitative* < 0.25 ug/ml (0.00-0.50)
[2024-01-21 10:54] LABS: PCR FLU A Negative PCR FLU A (Negative); PCR FLU B Negative PCR FLU B (Negative); PCR RSV Negative PCR RSV (Negative); SARS PCR* Negative SARS-CoV-2 (Negative)
[2024-01-21 12:46] LABS: Troponin, Point-of-Care* 0.01 ng/ml (0.01-0.04)
== END 2024-01-21 13:11 | disposition home or self-care (01) ==
PROVIDERS: Emergency Provider Family Medicine; PCP Student in an Organized Health Care Education/Training Program
DX: R07.9 Chest pain, unspecified (principal)
CPT/HCPCS: 36415; 71045; 80053; 82077; 83605; 83690; 84484; 85025; 85379; 86140; 87631; 93005; 93970; 99285

== ENCOUNTER 2024-08-13 10:29 | Emergency (ER) | payer MEDICAID, SELFPAY ==
[2024-08-13 10:36] VITALS: BP 129/87; PULSE 80; RESP 14; TEMP 37.2; O2SAT 100; BMI 27.3
--- NOTE | 2024-08-13 11:19 | CRLHL7_ITS ---
For Patients: As a result of the Century Cures Act, medical imaging exams and procedure reports are released immediately into your electronic medical record. You may view this report before your referring provider. If you have questions, please contact your health care provider. INDICATION: Left-sided chest pain. TECHNIQUE: Chest 2 views. COMPARISON: None. FINDINGS: No pneumothorax or pleural effusion. Lungs are clear. Cardiac and mediastinal contours are within normal limits. Upper abdomen and osseous structures as imaged show no acute abnormality. IMPRESSION: No evidence of acute cardiopulmonary disease. Dictated by Gabino Vyas MD @ 08/13/2024 12:16:53 PM (Electronically Signed)
--- NOTE | 2024-08-13 11:25 | ED_ITS ---
HPI - General Adult General Date Seen: 08/13/24 Chief complaint: Extremity Pain/Injury, Upper Stated complaint: Chest, rib, sternum pain Time Seen by Provider: 08/13/24 11:02 Source: patient Mode of arrival: ambulatory Limitations: no limitations History of Present Illness HPI narrative: Patient is a 39-year-old male presenting to the emergency department for chest pain. He states yesterday while he was playing around with his hockey stick at home he suddenly had left-sided chest discomfort. Pain is just below left breast radiating to left lateral aspect of the chest and near the sternal clavicular joint. States he was not overly exerting himself bone was not doing any acute movements that would cause the pain. He states when they occurred he felt very short of breath. He now has pain to his left lower chest whenever he takes a deep breath. That area is nontender to palpation. He is tender to palpation to the sternoclavicular joint on left side. Does have pain also when he moves his left arm to his left side of his chest. Denies symptoms like this before. No history of blood clots. Most recent surgery was 3 months ago. No history of cancer. Denies hemoptysis. Denies any hormone use. States he used inhaler yesterday for his asthma with some mild improvement in his symptoms. He has not taking anything at for pain. No concerning family history of heart dis ease. Denies fevers, chills, headache, vision changes, weakness, numbness, lightheadedness, dizziness. Related Data Home Medications ?Medication ?Instructions ?Recorded ?Confirmed albuterol sulfate 90 mcg/actuation 2 puff inhalation Q4H PRN wheezing 07/12/23 08/13/24 aerosol inhaler (Ventolin HFA) Allergies Allergy/AdvReac Type Severity Reaction Status Date / Time No Known Drug Allergies Allergy Verified 08/13/24 10:42 Review of Systems Status of ROS: Reports: 10 or more systems reviewed and unremarkable except as noted in History and below PFSH PFS Medical History Hx of substance abuse ?F19.11 - Other psychoactive substance abuse, in remission (ICD-10) Borderline personality disorder ?F60.3 - Borderline personality disorder (ICD-10) Bipolar 1 disorder ?F31.9 - Bipolar disorder, unspecified (ICD-10) Alcohol use disorder, severe, in sustained remission ?F10.21 - Alcohol dependence, in remission (ICD-10) Moderate episode of recurrent major depressive disorder ?F33.1 - Major depressive disorder, recurrent, moderate (ICD-10) Social History Smoking Status: Light tobacco smoker What tobacco products do you use: cigarettes Do you use any of these nicotine containing products: None How often do you have a drink containing alcohol: monthly or less AUDIT-C Alcohol total score: 1 Non-prescribed substance use: marijuana (any form) Non-prescribed substance use details: medical thc service: No Exam Narrative: Exam Narrative: Const: Well-nourished, Well-developed, in mild distress Eyes: PERRL, no conjunctival injection, and symmetrical lids HENT: Atraumatic external nose and ears. Moist mucous membranes. Poor dental hygiene with large cavity noted to tooth 15. No signs of associated infection Neck: Symmetric, trachea midline, No thyromegaly. CVS: RRR, No murmurs or gallops. Peripheral pulses 2+ and equal in all extremities RESP: Unlabored respiratory effort. Clear to auscultation bilaterally. GI: Nontender/Nondistended, No rebound or guarding. MSK:Extremities w/o deformity, Normal Active ROM, tenderness to left sternoclavicular joint. No tenderness noted to left lateral chest Skin: Warm, Dry. No rashes or lesions. Neuro: Normal Muscle tone, No focal neurological deficits. Psych: Awake, Alert, & Oriented x3. Appropriate mood and affect. Const: Vital Signs, click to edit/add: Vital Signs - 24 hr 08/13/24 10:36 Temperature 98.9 F Pulse Rate [Pulse Oximeter] 80 Respiratory Rate 14 Blood Pressure [Ri ght Upper Arm] 129/87 Pulse Oximetry 100 Oxygen Delivery Me thod Room Air Course Vital Signs Vital signs: Initial Vital Signs Temperature 98.9 F 08/13/24 10:36 Temperature Source Temporal Artery Scan 08/13/24 10:36 Pulse Rate 80 08/13/24 10:36 Respiratory Rate 14 08/13/24 10:36 Blood Pressure 129/87 08/13/24 10:36 Blood Pressure Mean 101 08/13/24 10:36 Pulse Oximetry 100 08/13/24 10:36 Oxygen Delivery Method Room Air 08/13/24 10:36 Vital Signs Temperature 98.9 F 08/13/24 10:36 Pulse Rate 80 08/13/24 10:36 Respiratory Rate 14 08/13/24 10:36 Blood Pressure 129/87 08/13/24 10:36 Pulse Oximetry 100 08/13/24 10:36 Oxygen Delivery Method Room Air 08/13/24 10:36 Temperature 98.9 F 08/13/24 10:36 Pulse Rate 80 08/13/24 10:36 Respiratory Rate 14 08/13/24 10:36 Blood Pressure 129/87 08/13/24 10:36 Pulse Oximetry 100 08/13/24 10:36 Oxygen Delivery Method Room Air 08/13/24 10:36 Medications Administered Medications: Discontinued Medications Generic Name Dose Route Start Last Admin Trade Name Freq PRN Reason Stop Dose Admin Ketorolac Tromethamine 30 mg 08/13/24 11:18 08/13/24 11:42 Ketorolac 30 Mg/Ml Inj IM 08/13/24 11:19 30 mg ONCE ONE Administration Medical Decision Making [facility] Narrative Medical decision making narrative: Patient is a 39-year-old male presenting for chest pain. The differential diagnosis of chest pain is broad and includes common etiologies such as musculoskeletal strain, GERD, pneumonia, etc. More serious etiologies considered include PE, coronary artery disease, pneumothorax, aortic dissection, aortic aneurysm. I am considering musculoskeletal strain for this considering occurred while he was playing was hockey-stick but considering he was not doing acute working movements or something that would cause him to it is important to broaden the workup. Coronary artery disease is considered I will order a EKG and troponin. He is PERC negative so PE can not be ruled out at this time. Chest x-ray will be ordered to look for signs pneumonia or spontaneous pneumothorax. He is a current smoker. Aortic dissection aortic aneurysm seems very unlikely concerning his otherwise stable vital signs. Will also order a CBC, BMP. Toradol given for pain. Some improvement in his symptoms with Toradol. Lab work all returned showing no concerning abnormalities. Troponin within normal limits. Considering symptoms have been going on since yesterday do not believe a repeat troponin is necessary. EKG also shows no concerning findings. Chest x-ray reviewed myself and radiologist shows no concerning findings. Believe he may have strained the sternoclavicular joint and is pleurisy to his left lower chest. He did ask about a cavity he has a black cause infection causing symptoms. I looked at the tooth and is not appear infected although it does likely need to be hold by dentist. With otherwise normal vitals and lab work and no murmur heard on exam believe is very unlikely he has infective endocarditis. Patient will be discharged and he is agreeable to this plan pain Lab Data Labs: Lab Results 08/13/24 08/13/24 Range/Units 11:19 11:27 WBC 5.63 (4.50-11.00) K/uL RBC 5.04 (4.30-5.90) m/uL Hgb 14.9 (13.5-17.5) gm/dL Hct 45.4 (37.0-53.0) % MCV 90 (80-100) fL MCH 30 (26-34) pg MCHC 33 (32-36) gm/dL RDW Coeff of Horace 12.3 (11.5-15.5) % Plt Count 216 (140-440) K/uL Neut % (Auto) 63.6 (42.0-72.0) % Lymph % (Auto) 25.0 (20-44) % Dauphin % (Auto) 7.3 (0.0-11.0) % Eos % (Auto) 3.7 (0.0-7.0) % Baso % (Auto) 0.4 (0.0-3.0) % Neut # (Auto) 3.58 (1.7-7.0) K/uL Lymph # (Auto) 1.41 (0.90-2.90) K/uL Dauphin # (Auto) 0.40 (0.00-0.90) K/UL Eos # (Auto) 0.21 (0.00-0.50) K/uL Baso # (Auto) 0.02 (0.00-0.30) K/uL Abs Immat Gran (auto) 0.00 (0.00-0.30) K/uL Imm/Tot Granulo (auto) 0.0 % Sodium 137 (135-149) mmol/L Potassium 4.2 (3.6-5.1) mmol/L Chloride 104 (96-114) mmol/L Carbon Dioxide 24 (20-32) mmol/L Anion Gap 9 (7-15) mEq/L BUN 12 (5-24) mg/dL Creatinine 0.7 (0.5-1.5) mg/dL Estimated Creat Clear 140.28 Estimated GFR 119 ml/min Glucose 113 (60-115) mg/dL Calcium 9.1 (8.4-10.6) mg/dL POC Troponin I 0.02 (0.01-0.04) ng/ml Imaging Data Chest x-ray: Attestation: I have reviewed the pertinent imaging results. Radiologist's impression: No evidence of acute cardiopulmonary disease. Dictated by Gabino Vyas MD @ 08/13/2024 12:16:53 PM ECG Data Attestation: I personally reviewed and interpreted this ECG as follows: Prior ECG tracings: available for review Interpretation: Normal sinus rhythm with a rate of 70 beats per minute, normal KY interval, normal QT, normal axis. This appeared to be a right bundle-branch block. No ST or T-wave abnormalities. Appears similar previous EKG on file other than smaller QRS complexes. Discharge Plan Discharge Clinical Impression: Pleurisy Patient Disposition: Home, Self-Care Condition: Stable Instructions: Pleurisy (DC) Additional Instructions: Take Tylenol and ibuprofen for ear pain. If you start developing new or worse marilu symptoms such as worsening chest pain, difficulty breathing, rapid heart rate or any other concerning issues return for re-evaluation. Prescriptions: No Action albuterol sulfate [Ventolin HFA] 90 mcg/actuation HFA aerosol inhaler 2 puff INHALATION Q4H PRN (Reason: wheezing) Follow Up/Referrals: ISRAEL BERNARDO DO [Primary Care Provider] - Stand Alone Forms: [facility] Info Instructions
--- OUTSIDE RECORDS SUMMARY | 2024-08-13 11:26 | XMS_ITS | Continuity of Care Document ---
Author Organization [facility] Address [address] [place] [address] Phone Care Team Providers Care Clinical Trial Coordinator Name Role Phone Renzo SWAN, PhD, Jaycob [...] Visit,Est, Low [facility], [address], [place], [place], [id number], [place] tel:[phone] [facility] [place] Low back pain, unspecified Renzo Devries. [facility], [address] [facility] [address], [place], [address], [place]. tel:[phone] Referring Provider: Jaycob Muller, [facility] [address], [place], [address]. tel:[phone] Office/Outpat ient Visit,New, Mod [facility], [address], [place], [place], [id number], [place] tel:[phone] [facility] [place] Low back pain 1 Renzo Devries. [facility], [address] [place] [address] [address], [place], [address], [place]. [phone] Referring Provider: Amrik Yeh, [facility] [address], [address], [place], [address] . tel:[phone] Office/Outpat ient Visit,Est, Mod [facility], [address], [place], [place], [id number], [place] tel:[phone] [facility] [place] Other intervertebral disc degeneration, lumbar region 6 Panvica Amrik. [facility], [address] [place] [address], [address], [place], [place], [id number] , [place]. [phone] Referring Provider: Amrik Yeh, [facility] [address], [address], [place], [address] . tel:[phone] Office/Outpat ient Visit,Est, Mod [facility], [address], [place], [place], [id number], [place] tel:[phone] [facility] [place] Other intervertebral disc degeneration, lumbosacral region 6 Panvica Amrik. [facility], [address] [place] [address], [address], [place], [place], [id number] , [place]. [phone] Referring Provider: Amrik Yeh, [facility] [address], [address], [place], [address] . tel:[phone] Office/Outpat ient Visit,New, Mod [facility], [address], [place], [place], [id number], [place] tel:[phone] [facility] [place] Other intervertebral disc degeneration, lumbosacral region 201 5 Maura Rowley. [facility], [address] [place] [address], [address], [place], [place], [id number] , [place]. [phone] Referring Provider: Amrik Yeh, [facility] [address] [place] [address], [address], [place], [address] . tel:[phone] Family History Family Member Type Diagnosis Age At Onset No Information Payers Payer name Insurance type Covered republican ID Susi camacho(s) [facility] [id number] Social History Type Description Quantity Date Captured [...]
--- OUTSIDE RECORDS SUMMARY | 2024-08-13 11:26 | XMS_ITS | Clinical Summary ---
Author Organization [email or web address] Address [place], [place] [address] Care Team Providers Care Evidence Technician Name Role Phone Jeancarlos Min DO Primary Care Provider [phone] Allergies Active Allergy Reactions Criticality Noted Date Comments Cats (Fur, Dander, Saliva) Wheezing 4 Medications Medication Sig Dispensed Refills Start Date End Date Status durable medical equipment (DME)Indications:Fol low-up examination after orthopedic surgery AIR SELECT, STANDARD, MEDIUM, REF: 07EF-M 1 Each 09/19/2023 Active durable medical equipment (DME)Indications:Lef t tibialis posterior tendonitis AIRLIFT PTTD BRACE, MEDIUM, LEFT, REF: 02PML 11/14/2023 Active Ventolin HFA 90 mcg/actuation inhalerIndications:M ild intermittent asthma with acute exacerbation INHALE 1 TO 2 PUFFS BY MOUTH EVERY 4 HOURS WHILE AWAKE 18 g 3 01/22/2024 Active oxyCODONE-acetaminop hen (PERCOCET) 5-325 mg per tabletIndications:Po st-traumatic osteoarthritis of left ankle Take 1-2 Tablets by mouth every 4 hours if needed for Pain. Max acetaminophen dose: 4000mg in 24 hrs. 20 Tablet 05/26/2024 Active Active Problems Problem Noted Date Diagnosed Date Bone spur of left ankle 05/26/2024 Post-traumatic osteoarthritis of left ankle 05/06 Bipolar 1 disorder 09/23/2021 Borderline personality disorder 09/23/2021 Allergy to cats 09/23/2021 Hx of substance abuse 09/23/2021 Overview (09/23/2021): Heroin, cocaine, and meth Moderate episode of recurrent major depressive d isorder 11/03/2017 Alcohol use disorder, severe, in sustained remis doreen 11/03/2017 Encounters Date Type Department Care Team Description 06/17/2024 3:00 PM CDT Office Visit [facility] [address] [place] [address] Thaddeus Salmon DPM Post-op (Left ankle, DOS 05/26/24, 3 weeks post op) 06/17/2024 Travel 05/28/2024 11:00 AM CDT Office Visit [facility] [address] [place] [address] Thaddeus Salmon DPM Post-op (Left foot, DOS 05/26/24, initial post op) 05/28/2024 Travel 05/27/2024 Telephone [facility] [address] [place] [address] Thaddeus Salmon DPM Surgical Followup 05/26/2024 8:43 AM CDT Anesthesia Event [facility] [address] [place] [address] Marty Rodriguez CRNA 05/26/2024 8:20 AM CDT - 05/26/2024 9:[address] [facility] [address] [place] [address] Thaddeus Salmon DPM EXOSTECTOMY left ankle 05/26/2024 6:36 AM CDT - 05/26/2024 11:05 AM CDT Hospital Encounter [facility] [address] [place] [address] Thaddeus Salmon DPM Post-traumatic osteoarthritis of left ankle (Primary Dx) Discharge Disposition: Home Self Care 05/26/2024 Travel 05/16/2024 10:10 AM CDT Preop Visit [facility] [address] [place] [address] Jeancarlos Min, Preoperative Exam (EXOSTECTOMY left ankle 05/26/2024 - [place] [facility] [place] [facility] [place] 05/16/2024 Travel 05/15/2024 Telephone [facility] [address] [place] [address] Jeancarlos Min DO referral 05/14/2024 8:00 AM CDT Office Visit [facility] [address] [place] [address] Thaddeus Salmon, NELLY Follow Up (Left ankle) 05/14/2024 Travel from Last 3 Months Immunizations Name Administration Dates Next Due Td (Age >=7 Years) 07/31/1997 Tdap 04/26/2012,12/29/2008 Family History Medical History Relation Name Comments Asthma Brother 1 Depression Brother 1 Depression Brother 2 Depression Brother 3 Asthma Father Seizures Father Depression Mother Diabetes Mother Alcoholism Other dad's side Depression Sister Mental illness Son 1 Other Son 2 Pablo nut and shrimp allergies Relation Name Status Comments Brother 1 Alive Brother 2 Alive Brother 3 Alive Father (Age 26) Mother Alive Other Sister Alive Son 1 Alive Son 2 Pablo Alive Social History Tobacco Use Types Packs/Day Years Used Date Smoking Tobacco: Every Day Cigarettes 0.3 1 Started: 08/05/2023; Last attempted to quit: 07/24/2021 Smokeless Tobacco: Former Chew Tobacco Cessation:Ready to Q uit: No; Counseling Given: Yes Alcohol Use Standard Drinks/Week Comments Yes 0 (1 standard drink = 0.6 oz pur e alcohol) Rare PHQ-2 Answer Date Recorded PHQ-2 TOTAL SCORE 2 07/02/2023 Social Connections Answer Date Recorded Frequency of Communication with Friends and Fami ly 0 04/07/2024 Alcohol Use Answer Date Recorded How often do you have a drink containing alcohol ? 0 12/13/2021 Average Number of Drinks Not on file 022 Frequency of Binge Drinking Not on file 06/2022 Financial Resource Strain Answer Date R ecorded Difficulty of Paying Living Expenses 3 04/07/2024 Difficulty of Paying Living Expenses Not on file 04/07/2024 Food Insecurity Answer Date Recorded Worried About Running Out of Food in the Last Ye ar 1 04/07/2024 Transportation Needs Answer Date Record ed Lack of Transportation (Medical) 1 04/07/2024 Housing Stability Answer Date Recorded Unable to Pay for Housing in the Last Year 1 04/07/2024 Sex and Gender Information Value Date Recorded Sex Assigned at Not on file Gender Identity Not on file Sexual Orientation Not on file Obstetrics History Last Filed Vital Signs Vital Sign Reading Time Taken Comments Blood Pressure 145/77 06/17/2024 2:52 PM CDT tow er Pulse 74 06/17/2024 2:52 PM CDT Temperature 36.5 ??C (97.7 ??F) 05/26/2024 7:00 AM CD T Respiratory Rate 16 05/26/2024 10:30 AM CDT Oxygen Saturation 99% 06/17/2024 2:52 PM CDT Inhaled Oxygen Concentration - - Weight 82.6 kg (182 lb) 06/17/2024 2:52 PM CDT Height 174.6 cm (5' 8.75) 05/26/2024 6:55 AM CD T Body Mass Index 27.07 05/26/2024 6:55 AM CDT Plan of Treatment Health Maintenance Due Date Last Done Comments Pneumococcal series for age 6-64 (1 of 2 - PCV) 1990 HIV for age 15-65 1999 Hepatitis C screening for ag e 18-79 2002 Tetanus booster 04/26/2022 04/26/2012, 12/07, 07/31/1997 Depression screening for age 12+ 07/02/2024 07/02/2023, 07/12/2022, 07/11/2022, Additional history exists COVID-19 vaccine series () 07/06/2024 Influenza for age 9-49 07/06/2024 BMI (ht and wt on same day) for age 18+ 04/07/2025 04/07/2024, 01/29/2024, 09/23/2021 Lipids for age 35-44 09/23/2026 09/23/2021 Tdap Completed 04/26/2012, 12/29/2008 Procedures Procedure Name Priority Date/Time Associated Diagnosis Comments XR C-ARM GREATER 1 HR Routine 05/26/2024 10:03 AM CDT EXOSTECTOMY Elective 05/26/2024 8:33 AM CDT Bone spur of left ankle Case Notes osteotomehumberto burr BEDSIDE US STUDY ARCHIVE Preop 05/26/2024 6:43 AM CDT LIPID PANEL W REFLEX MEASURED LDL Routine 09/23/2021 9:15 AM REFERRAL SPECIALIST Lipid screening from Last 3 Months or Most Recently Relevant to Health Maintenance Results * XR C-ARM GREATER 1 HR (05/26/2024 10:03 AM CDT) Anatomical Region Laterality Modality X-Ray Angiograph y 05/27/2024 1:32 PM CDT Narrative 05/27/2024 1:32 PM CDT For Patients: ??As a result of the Cures Act, medical imaging exams and procedure reports are released immediately into your electronic medical record. ??You may view this report before your referring provider. ??If you have questions, please contact your health care provider. INDICATION: Left ankle spur. TECHNIQUE: Spot images of the ankle submitted. 30.1 seconds fluoro time. FINDINGS: Two images of the ankle taken during surgery. Dictated by Prasanna Licona MD @ 05/27/2024 1:32:25 PM (Electronically Signed) Procedure Note Prasanna Licona MD - 05/27/2024 For Patients: As a result of the Cures Act, medical imagingexams and procedure reports are released immediately into your electronicmedical record. You may view this report before your referring provider.If you have questions, please contact your health care provider. INDICATION: Left ankle spur. TECHNIQUE: Spot images of the ankle submitted. 30.1 seconds fluoro time. FINDINGS: Two images of the ankle taken during surgery. Dictated by Prasanna Licona MD @ 05/27/2024 1:32:25 PM (Electronically Signed) Thaddeus Salmon DPM FLUOROSCOPY * (ABNORMAL) LIPID PANEL W REFLEX MEASURED LDL (09/23/2021 9:15 AM REFERRAL SPECIALIST) CHOLESTEROL,TOTAL 199 100 - 199 mg/dL 09/23/2021 5:14 PM REFERRAL SPECIALIST [facility] TRIGLYCERIDES 78 <150 mg/dL 09/23/2021 5:14 PM REFERRAL SPECIALIST [facility] HDL CHOLESTEROL 53 >40 mg/dL 5:14 PM REFERRAL SPECIALIST [facility] NON-HDL CHOLESTEROL 146(H) <145 mg/dl 09/23/2021 5:14 PM REFERRAL SPECIALIST [facility] CHOL/HDL RATIO 3.75 <4.50 09/23/2021 5:14 PM REFERRAL SPECIALIST [facility] LDL CHOLESTEROL 130 <=130 mg/dL 09/23/2021 5:14 PM REFERRAL SPECIALIST [facility] VLDL CHOLESTEROL 16 <=30 mg/dL 09/23/2021 5:14 PM REFERRAL SPECIALIST [facility] PROVIDER ORDERED STATUS RANDOM 09/23/2021 5:14 PM REFERRAL SPECIALIST [facility] Blood BLOOD SPECIMEN / Unknown Venipuncture / Unknown 09/23/2021 9:15 AM REFERRAL SPECIALIST 09/23/2021 9:15 AM REFERRAL SPECIALIST Ruth Ann [facility] [address] [place] [address], from Last 3 Months or Most Recently Relevant to Health Maintenance Advance Directives * Full Code (Latest Code Status on File) Date Activated Date Inactivated Comments 05/26/2024 6:43 AM 05/26/2024 1:39 PM Question Answer Comments Code Status Discussion: Reviewed Preferences * Full Code Date Activated Date Inactivated Comments 11/02/2017 10:19 PM 11/03/2017 1:41 PM Care Teams Evidence Technician Relationship Specialty Start Date End Date Jeancarlos [place] [address] PCP - General Family Practice 07/17/23
--- OUTSIDE RECORDS SUMMARY | 2024-08-13 11:26 | XMS_ITS | Continuity of Care Document ---
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 Role Phone Billy Montemayor Unavailable Unavailable Medications Medication Instructions Dosage Effective [...] 180 MCG - Active Procedures Procedure Date OFFICE VISIT, EST TELEMEDICINE Drug Urine Toxology With Chromatography Drug test def 1-7 classes OFFICE/OUTPATIENT VISIT, [facility] Advance Directives Directive Yes / No Effective Date File Name No Information Encounters Encounter Description Practice Location Reason(s) For Visit Diagnoses Date Provider Providers Copied on Encounter OFFICE VISIT, EST TELEMEDICINE [facility], [address] [place], [id number] , [place] tel:[phone] [facility] [place] back pain (chief complaint) Bipolar disorder, unspecifiedChroni c pain syndromePain in left ankle and joints of left footOther intervertebral disc degeneration, lumbar regionOther intermediate teacher (current) drug therapy 3 Berkley Cervantes. [facility], [place], [id number] , [place]. tel:[phone] [facility], [address], [place], [id number] , [place] tel:[phone] [facility] [place] No Information 2 eBrkley Cervantes. [address] [facility] [address], [place], [place], [id number] , [place]. tel:[phone] Referring Provider: Brenden Scales [facility] [address] [place], [address]. tel:[phone] OFFICE/OUTPAT IENT VISIT, NEW [facility], [address], [place], [id number] , [place] tel:[phone] [facility] Back Pain (chief complaint) Chronic pain syndromeOther intervertebral disc degeneration, lumbar regionPain in left ankle and joints of left footBipolar disorder, unspecifiedOther skilled nursing (current) drug therapy Jul- 2 Berkley Cervantes. [address] [place] [address] [address], [place], [place], [id number] , [place]. tel:[phone] [facility] [address] [place], [address]. tel:[phone] Family History Family Member Type Diagnosis Age At Onset No Information Payers Payer name Insurance type Covered alliance party ID Susi camacho(s) [facility] [id number] Social History Type Description Quantity Date Captured [...] on due Goal Tobacco Use. Due on 023 due Goal Weight. Due on d ue Goal Update Social History. Due o n due Goal Medication Reconciliation. D ue on due Goal Medication Reconciliation. D ue on due Goal Tobacco Use. Due on 022 due Goal Height. Due on d ue Goal PHQ-9. Due on du e Goal Unhealthy drug use screening . Due on due Goal Hepatitis C screening. Due o n due Goal Weight. Due on d ue Goal Review Allergy List. Due on due Goal Update Social History. Due o n due Goal Weight. Due on d ue Goal Hepatitis C screening. Due o n due Goal Review Allergy List. Due on due Goal Update Social History. Due o n due Goal Unhealthy drug use screening . Due on due Goal PHQ-9. Due on du e Goal Height. Due on d ue Goal Tobacco Use. Due on 022 due Goal Medication Reconciliation. D ue on due History Of Present Illness Encounter Date Complaint History Of [place] nt Illness back pain Severity level i [...] had surgery on his L ankle through [facility] to clean out his arthritis. Endorses some [...] pain referred by Dr. Brenden Scales through [facility]. Pain started 10 years ago after [...] is interested in medical cannabis certification through [facility]. No other concerns today. Back Pain Severity [...] mation No Information Assessments Type Assessment Date assessment [...] completed LESIs with Dr. Scales with benefit impression C/o L ankle pain d/t injury from skateboarding. S/p recent L ankle surgery through [facility] to clean out his arthritis, reporting good relief 2 weeks post-op assessment Pain in left ankle and joints of left foot impression Patient reports 2 he rniated discs in low back, causing pain that has worsened over the past several years. Managed with LESIs completed by Dr. Scales, with significant benefit assessment Other intervertebral disc degene ration, lumbar region assessment Other skilled nursing (current) drug t herapy impression The patient has intr actable pain. Limited relief or cure has been obtained despite reasonable treatment options, including multiple Rx regimens, PT. The patient is an appropriate candidate for medical cannabis. Will plan to recertify patient for medical cannabisCurrently utilizing flower Mental Status Date Cognitive Assessment Orientation - [place] ed to time, place, person, situation.Normal Orientation Patient Care Teams Name Effective Dates (start - stop) Status Members No Information
[2024-08-13 11:35] LABS: Basophils Absolute Auto 0.02 K/uL (0.00-0.30); Basophils Percent Auto 0.4 % (0.0-3.0); Eosinophils Absolute Auto 0.21 K/uL (0.00-0.50); Eosinophils Percent Auto 3.7 % (0.0-7.0); Hematocrit 45.4 % (37.0-53.0); Hemoglobin* 14.9 gm/dL (13.5-17.5); Lymphocytes Absolute Auto 1.41 K/uL (0.90-2.90); Mean Corpuscular HGB Conc 33 gm/dL (32-36); Mean Corpuscular Hemoglobin 30 pg (26-34); Mean Corpuscular Volume 90 fL (80-100); Monocytes Percent Auto 7.3 % (0.0-11.0); Neutrophils Absolute Auto 3.58 K/uL (1.7-7.0); Neutrophils Percent Auto 63.6 % (42.0-72.0); Platelet Count* 216 K/uL (140-440); RDW Coefficient of Variation % 12.3 % (11.5-15.5); Red Blood Count 5.04 m/uL (4.30-5.90); White Blood Count* 5.63 K/uL (4.50-11.00)
[2024-08-13 11:40] LABS: Slide Review Reflex No
[2024-08-13] MEDS: KETOROLAC 30 MG/ML inj IM (11:42)
[2024-08-13 11:48] LABS: Troponin, Point-of-Care* 0.02 ng/ml (0.01-0.04)
[2024-08-13 11:49] LABS: Chloride* 104 mmol/L (96-114); Potassium* 4.2 mmol/L (3.6-5.1); Sodium* 137 mmol/L (135-149)
[2024-08-13 11:52] LABS: Anion Gap 9 mEq/L (7-15); Blood Urea Nitrogen* 12 mg/dL (5-24); Carbon Dioxide* 24 mmol/L (20-32); Creatinine* 0.7 mg/dL (0.5-1.5); Est. Creatinine Clearance* 140.28; Estimated Glomerular Filt Rate 119 ml/min
[2024-08-13 11:53] LABS: Calcium* 9.1 mg/dL (8.4-10.6); Glucose* 113 mg/dL (60-115)
== END 2024-08-13 12:39 | disposition home or self-care (01) ==
PROVIDERS: Emergency Provider Student in an Organized Health Care Education/Training Program; PCP Student in an Organized Health Care Education/Training Program
DX: R09.1 Pleurisy (principal)
CPT/HCPCS: 36415; 71046; 80048; 84484; 85025; 93005; 96372; 99283; 99284; J1885

== ENCOUNTER 2025-05-20 15:18 | Emergency (ER) | payer MEDICAID, SELFPAY ==
--- OUTSIDE RECORDS SUMMARY | 2023-09-20 04:49 | XMS_ITS | Continuity of Care Document ---
Author Organization [facility] Address [address] [place] [address] Phone Care Team Providers Care Board Finisher Name Role Phone Mahad Kwan Unavailable Unavailable Medications Medication Instructions Dosage Effective Dates (start [...] - 6 hours as needed as needed - Active Procedures Procedure Date OFFICE VISIT, EST TELEMEDICINE Drug test def 1-7 classes Drug Urine Toxology With Chromatography OFFICE/OUTPATIENT VISIT, [facility] Advance Directives Directive Yes / No Effective Date File Name No Information Encounters Encounter Description Practice Location Reason(s) For Visit Diagnoses Date Provider Providers Copied on Encounter OFFICE VISIT, EST TELEMEDICINE [facility], [address] [place], [id number] , [place] tel:[phone] [facility] [place] back pain (chief complaint) Bipolar disorder, unspecifiedChroni c pain syndromePain in left ankle and joints of left footOther intervertebral disc degeneration, lumbar regionOther chcf (current) drug therapy [address] Ber[address]. [place], [facility] [place], [address], [place]. tel:[phone] [facility], [address] [place], [place], [id number] , [place] tel: [phone] [facility] No Information Sep-0 2 Ber[address] [place], [address] [place], [address], [place]. [phone] Referring Provider: Brenden Scales [facility] [address] [place], [address]. tel:[phone] OFFICE/OUTPAT IENT VISIT, NEW [facility], [address] [place], [place], [id number] , [place] tel: [phone] [facility] Back Pain (chief complaint) Chronic pain syndromeOther intervertebral disc degeneration, lumbar regionPain in left ankle and joints of left footBipolar disorder, unspecifiedOther chcf (current) drug therapy Sep-0 2 [place] [place], [address] [place], [address], [place]. tel:[phone] Referring Provider: Brenden Scales [facility] [address] [place], [address]. tel:[phone] Family History Family Member Type Diagnosis Age At Onset No Information Payers Payer name Insurance type Covered republican ID Authorsully camacho(s) [facility] [id number] Social History Type Description Quantity Date Captured Comments Alcohol Use Details Unknown Caffeine Use Details Unknown Tobacco Use Status No Information Smoking Status No Information Sex Male Chief Complaint And Reason For Visit From encounter dated '09/20/2023 09:49'. back pain (chief complaint). Description: Severity level is 8. Duration: chronic. The problem is stable. It occurs persistently. Location of pain is lower back and left ankle. The client describes the pain as an ache. Reason For Referral Reason For Referral No Information Plan Of Treatment Date Type Action Status Goal Medication Reconciliation. D ue on due Goal Update Social History. Due o n due Goal Weight. Due on d ue Goal Tobacco Use. Due on 023 due Goal Review Allergy List. Due on due Goal Height. Due on d ue Goal Hepatitis C screening. Due o n due Goal PHQ-9. Due on du e Goal Unhealthy drug use screening . Due on due Goal Update Social History. Due o n due Goal Review Allergy List. Due on due Goal Weight. Due on d ue Goal Hepatitis C screening. Due o n due Goal Unhealthy drug use screening . Due on due Goal PHQ-9. Due on du e Goal Height. Due on d ue Goal Tobacco Use. Due on 022 due Goal Medication Reconciliation. D ue on due Goal Update Social History. Due o n due Goal Review Allergy List. Due on due Goal Weight. Due on d ue Goal Hepatitis C screening. Due o n due Goal Unhealthy drug use screening . Due on due Goal PHQ-9. Due on du e Goal Height. Due on d ue Goal Tobacco Use. Due on 022 due Goal Medication Reconciliation. D ue on due History Of Present Illness Encounter Date Complaint History Of Prestg nt Illness back pain Severity level i s 8. Duration: chronic. The problem is stable. It occurs persistently. Location of pain is lower back and left ankle. The client describes the pain as an ache. Comments: Gino is a 38 y/o male here virtually via [facility] for initial follow up and medical cannabis recertification for chronic low back and L ankle pain. Pain started 10 years ago after an injury from skateboarding. Pain has been overall stable since FAUSTINO on 07/14/22. Does note he recently had surgery on his L ankle through [facility] to clean out his arthritis. Endorses some relief already even with only being ~2 weeks post-op. Does note that his back pain has flared with the decreased activity during recovery.Currently utilizing the flower with significant benefit, especially with helping him sleep. No other concerns today. Comments: Gino is a 37 y/o male here for initial consult for chronic low back and L ankle pain referred by Dr. Brenden Scales through [facility]. Pain started 10 years ago after an [...] is interested in medical cannabis certification through [facility]. No other concerns today. Back Pain Severity level i s 7. Duration: chronic. The problem is worsening. It occurs persistently. The client describes the pain as an ache, deep, numbness, sharp, shooting, stabbing and throbbing. Symptoms are aggravated by bending, lifting, lying/rest, running, twisting, walking, movement and changing positions. Symptoms are relieved by ice, physical therapy, stretching and rest. Functional Status Date Functional Assessmen t No Information Instructions Date Instruction Additional Infor red No Information Assessments Type Assessment Date assessment Bipolar disorder, unspecified No impression Hx of bipolar disord er. Managed on Latuda 40mg QD and lamotrigine 200mg QD assessment Chronic pain syndrome impression Gino is a 38 y/o male here for initial follow up and medical cannabis recertification for chronic low back and L ankle pain. Pain started 10 years ago after an injury from skateboarding. Reports Hx of bipolar disordeLeo has tried Ibuprofen and Celebrex. Previously completed LESIs with Dr. Scales with benefit assessment Pain in left ankle and joints of left foot impression C/o L ankle pain d/t injury from skateboarding. S/p recent L ankle surgery through [facility] to clean out his arthritis, reporting good relief 2 weeks post-op assessment Other intervertebral disc degene ration, lumbar region impression Patient reports 2 he rniated discs in low back, causing pain that has worsened over the past several years. Managed with LESIs completed by Dr. Scales, with significant benefit assessment Other emt intermediate (current) drug t herapy impression The patient has intr actable pain. Limited relief or cure has been obtained despite reasonable treatment options, including multiple Rx regimens, PT. The patient is an appropriate candidate for medical cannabis. Will plan to recertify patient for medical cannabisCurrently utilizing flower Mental Status Date Cognitive Assessment Orientation - [place] ed to time, place, person, situation.Normal Orientation Patient Care Teams Name Effective Dates (start - stop) Status Members No Information
--- OUTSIDE RECORDS SUMMARY | 2023-09-20 04:49 | XMS_ITS | Continuity of Care Document ---
Author Organization [facility] Address [address] [place] [address] Phone Care Team Providers Care Twister Frame Tender Name Role Phone Mahad Kwan Unavailable Unavailable [...] Procedure Date OFFICE VISIT, EST TELEMEDICINE Drug Urine Toxology With Chromatography Drug test def 1-7 classes OFFICE/OUTPATIENT VISIT, [facility] Advance Directives Directive Yes / No Effective Date File Name No Information Encounters Encounter Description Practice Location Reason(s) For Visit Diagnoses Date Provider Providers Copied on Encounter OFFICE VISIT, EST TELEMEDICINE [facility], [address] [place], [id number] , [place] tel:[phone] [facility] [place] back pain (chief complaint) Bipolar disorder, unspecifiedChroni c pain syndromePain in left ankle and joints of left footOther intervertebral disc degeneration, lumbar regionOther prison (current) drug therapy 3 Berkley Tobin. [place], [facility] [place], [address], [place]. tel:[phone] [facility], [address] [place], [place], [id number] , [place] tel: [phone] [facility] No Information Sep-0 2 Berkley Tobin[address]ala [place], [address] [place], [address], [place]. [phone] Referring Provider: Brenden Scales [facility] [address] [place], [address]. tel:[phone] OFFICE/OUTPAT IENT VISIT, NEW [facility], [address] [facility] [place], [place], [id number] , [place] tel: [phone] [facility] Back Pain (chief complaint) Chronic pain syndromeOther intervertebral disc degeneration, lumbar regionPain in left ankle and joints of left footBipolar disorder, unspecifiedOther prison (current) drug therapy Sep-0 2 [place] [place], [address] [place], [address], [place]. tel:[phone] Referring Provider: Brenden Scales [facility] [address] [place], [address]. tel:[phone] Family History Family Member Type Diagnosis Age At Onset No Information Payers Payer name Insurance type Covered alliance party ID Authorsully camacho(s) [facility] [id number] Social History Type Description Quantity Date Captured [...] Date Complaint History Of Prese nt Illness Comments: Gino is a 38 y/o male here virtually via [facility] for initial follow up and medical cannabis recertification for chronic low back and L ankle pain. Pain started 10 years ago after an injury from skateboarding. Pain has been overall stable since FAUSTINO on 07/14/22. Does note he recently had surgery on his L ankle through [facility] to clean out his arthritis. Endorses some relief already even with only being ~2 weeks post-op. Does note that his back pain has flared with the decreased activity during recovery.Currently utilizing the flower with significant benefit, especially with helping him sleep. No other concerns today. back pain Severity level i s 8. Duration: chronic. The problem is stable. It occurs persistently. Location of pain is lower back and left ankle. The client describes the pain as an ache. Back Pain Severity level i s 7. [...] pain referred by Dr. Brenden Scales through [facility]. Pain started 10 years ago after an [...] is interested in medical cannabis certification through [facility]. No other concerns today. Functional Status [...] skateboarding. S/p recent L ankle surgery through [facility] to clean out his arthritis, reporting good relief 2 weeks post-op assessment Other intervertebral disc degene ration, lumbar region impression Patient reports 2 he rniated discs in low back, causing pain that has worsened over the past several years. Managed with LESIs completed by Dr. Scales, with significant benefit assessment Other long term care administrator (current) drug t herapy impression The patient has intr actable pain. Limited relief or cure has been obtained despite reasonable treatment options, including multiple Rx regimens, PT. The patient is an appropriate candidate for medical cannabis. Will plan to recertify patient for medical cannabisCurrently utilizing flower Mental Status Date Cognitive Assessment Orientation - United ed to time, place, person, situation.Normal Orientation Patient Care Teams Name Effective Dates (start - stop) Status Members No Information
[2025-05-20 15:41] VITALS: BP 129/89; PULSE 79; RESP 16; TEMP 36.9; O2SAT 97; BMI 28.2
--- NOTE | 2025-05-20 15:50 | CRLHL7_ITS ---
For Patients: As a result of the Century Cures Act, medical imaging exams and procedure reports are released immediately into your electronic medical record. You may view this report before your referring provider. If you have questions, please contact your health care provider. INDICATION: Leg pain and swelling. TECHNIQUE: Ultrasound venous duplex bilateral lower extremity. Compression venous exam was performed using floyd-scale, color Doppler, and spectral Doppler analysis. COMPARISON: None. FINDINGS: Deep veins: Sonographic imaging demonstrates the bilateral common femoral, deep femoral, superficial femoral, popliteal, and posterior tibial veins to be fully compressible with normal color Doppler blood flow. Superficial veins: Greater saphenous veins are fully compressible. No popliteal cyst. IMPRESSION: No DVT in the bilateral lower extremities Dictated by Rigo Cody MD @ 05/20/2025 5:02:28 PM (Electronically Signed)
--- NOTE | 2025-05-20 17:28 | ED_ITS ---
HPI - General Adult General Chief complaint: Extremity Pain/Injury, Lower Stated complaint: blood clot in leg Time Seen by Provider: 05/20/25 17:25 Source: patient Mode of arrival: ambulatory Limitations: no limitations History of Present Illness HPI narrative: 40-year-old male presenting today with several concerns. Patient has had left ankle pain ever since he had surgery in what he believes was, 2021. He states that he just has not healed appropriately and he continues to have discomfort with his ankle. He states the he also has cramping in the left calf pain ever since surgery as well. Every now and then the cramping radiates into his knee and into his thigh. This last week he has also had pain radiate into the hip, groin and lower abdominal area as well. A few times the pain has gone all the way up to his chest. The pain in the abdomen and chest do not occur her unless he has simultaneous pain that starts in the lower extremity. It is a sharp pain that lasts a few seconds and then goes away. He does not feel short of breath. He thinks that the leg cramping has potentially gotten worse in the last year or so. Her he it has affected his physical activity, he tries to stays physically active as possible and has has really impacted his lifestyle. No recent surgeries, no recent travel. Patient is not dizzy or lightheaded. No coughing or shortness of breath. He does not have any chest or abdominal pain during physical activity. Related Data Home Medications ?Medication ?Instructions ?Recorded ?Confirmed albuterol sulfate 90 mcg/actuation 2 puff inhalation Q 4H PRN wheezing 07/12/23 05/20/25 aerosol inhaler (Ventolin HFA) Allergies Allergy/AdvReac Type Severity Reaction Status Date / Time No Known Drug Allergies Allergy Verified 05/20/25 15:50 Review of Systems Status of ROS: Reports: 10 or more systems reviewed and unremarkable except as noted in History and below [facility] Medical History Hx of substance abuse ?F19.11 - Other psychoactive substance abuse, in remission (ICD-10) Borderline personality disorder ?F60.3 - Borderline personality disorder (ICD-10) Bipolar 1 disorder ?F31.9 - Bipolar disorder, unspecified (ICD-10) Alcohol use disorder, severe, in sustained remission ?F10.21 - Alcohol dependence, in remission (ICD-10) Moderate episode of recurrent major depressive disorder ?F33.1 - Major depressive disorder, recurrent, moderate (ICD-10) Social History Smoking Status: Light tobacco smoker What tobacco products do you use: cigarettes Do you use any of these nicotine containing products: None How often do you have a drink containing alcohol: monthly or less AUDIT-C Alcohol total score: 1 Non-prescribed substance use: marijuana (any form) Non-prescribed substance use details: medical thc service: No Exam Narrative: Exam Narrative: Well-nourished well-developed patient in no acute distress. Alert and oriented. Answers questions appropriately. Mood and affect are appropriate. Thoughts are goal oriented and rational. No tangential or magical thinking noted. Patient speaks in full sentences without needing to catch his breath. Patient is physically fit. HEENT: Normocephalic atraumatic. Pupils are equally round reactive to light. Extraocular muscles are intact. Conjunctivae are moist without any icterus noted. Moist mucous membranes. Cardiovascular: Heart is regular rate and rhythm S1 and S2 are present without any murmurs. Lungs: Clear to auscultation bilaterally no wheezes rhonchi or rales are appreciated. Patient takes deep breaths without any discomfort. No discomfort with palpation of the chest wall. He Abdomen: Soft and nontender nondistended with normal bowel sounds. No guarding or rebound. No masses or organomegaly appreciated. Extremities: Bilateral lower extremities are without edema. Normal DP and PT pulses. No swelling noted of the calves. Negative Homans sign. He has scarring of the left ankle. With decreased range of motion of the ankle. Skin: Well perfused without any obvious rashes. Const: Vital Signs, click to edit/add: Vital Signs - 24 hr 05/20/25 15:41 Temperature 98.5 F Pulse Rate [Pulse Oximeter] 79 Respiratory Rate 16 Blood Pressure [Ri ght Upper Arm] 129/89 Pulse Oximetry 97 Oxygen Delivery Me thod Room Air Course Course ED Course: Patient had an ultrasound of the bilateral lower extremities before I saw him. This was normal - no evidence of DVT. Vital Signs Vital signs: Initial Vital Signs Temperature 98.5 F 05/20/25 15:41 Temperature Source Temporal Artery Scan 05/20/25 15:41 Pulse Rate 79 05/20/25 15:41 Respiratory Rate 16 05/20/25 15:41 Blood Pressure 129/89 05/20/25 15:41 Blood Pressure Mean 102 05/20/25 15:41 Blood Pressure Position Sitting 05/20/25 15:41 Pulse Oximetry 97 05/20/25 15:41 Oxygen Delivery Method Room Air 05/20/25 15:41 Vital Signs Temperature 98.5 F 05/20/25 15:41 Pulse Rate 79 05/20/25 15:41 Respiratory Rate 16 05/20/25 15:41 Blood Pressure 129/89 05/20/25 15:41 Pulse Oximetry 97 05/20/25 15:41 Oxygen Delivery Method Room Air 05/20/25 15:41 Temperature 98.5 F 05/20/25 15:41 Pulse Rate 79 05/20/25 15:41 Respiratory Rate 16 05/20/25 15:41 Blood Pressure 129/89 05/20/25 15:41 Pulse Oximetry 97 05/20/25 15:41 Oxygen Delivery Method Room Air 05/20/25 15:41 Medical Decision Making MDM Narrative Medical decision making narrative: 40-year-old male who has chronic left lower extremity pain and cramping for the last several years. It appears that all of his discomfort is on the left side including the pain that radiates from the lower extremity of to the trunk. I do not think that this is cardiac in nature. He does not seem to have any abdominal pain or pain that originates from the abdomen. Recommended physical therapy and re-evaluation by Orthopedics, both of which she has not had in what sounds like years. Imaging Data Venous US: Attestation: I have reviewed the pertinent imaging results. Radiologist's impression: TECHNIQUE: Ultrasound venous duplex bilateral lower extremity. Compression venous exam was performed using floyd-scale, color Doppler, and spectral Doppler analysis. COMPARISON: None. FINDINGS: Deep veins: Sonographic imaging demonstrates the bilateral common femoral, deep femoral, superficial femoral, popliteal, and posterior tibial veins to be fully compressible with normal color Doppler blood flow. Superficial veins: Greater saphenous veins are fully compressible. No popliteal cyst. IMPRESSION: No DVT in the bilateral lower extremities Discharge Plan Discharge Clinical Impression: Leg cramp, Ankle pain Patient Disposition: Home, Self-Care Condition: Stable Additional Instructions: I do recommend you get a 2nd opinion from another orthopedic surgeon as well as reconsider physical therapy. Prescriptions: No Action albuterol sulfate [Ventolin HFA] 90 mcg/actuation HFA aerosol inhaler 2 puff INHALATION Q4H PRN (Reason: wheezing) Follow Up/Referrals: ISRAEL BERNARDO DO [Primary Care Provider, Family Practice] Stand Alone Forms: [facility] Info Instructions
[2025-05-20 17:59] VITALS: PULSE 71; RESP 16; O2SAT 98
== END 2025-05-20 18:01 | disposition home or self-care (01) ==
LOC: ED 17:55
PROVIDERS: Emergency Provider Family Medicine; PCP Student in an Organized Health Care Education/Training Program
DX: M25.572 Pain in left ankle and joints of left foot (principal); R25.2 Cramp and spasm
CPT/HCPCS: 93970; 99284